=== PATIENT | male | born 1940 | race Caucasian/White ===

== ENCOUNTER 2022-09-05 10:37 | Outpatient (RCR) | payer BC, SELFPAY | END 2023-09-05 15:59 | disposition home or self-care (01) | LOC: MOW 10:37 | DX: Z76.0 Encounter for issue of repeat prescription (principal) | CPT/HCPCS: S5170 ==

== ENCOUNTER 2022-09-30 06:12 | Outpatient (CLI) | payer MEDICARE, BC, SELFPAY | END 2022-09-30 06:13 | disposition home or self-care (01) | LOC: AMB 10-01 12:18 | PROVIDERS: PCP Family Medicine; Visit Provider Family Medicine | DX: R06.09 Other forms of dyspnea (principal) | CPT/HCPCS: A0425; A0428; A0429 ==

== ENCOUNTER 2022-09-30 06:38 | Emergency (ER) | payer MEDICARE, BC, SELFPAY ==
[2022-09-30] VITALS (8 sets, daily range): BP systolic 133–148; BP diastolic 60–105; PULSE 62–75; RESP 16–32; TEMP 36.8; O2SAT 94–99
--- NOTE | 2022-09-30 06:50 | ED_ITS ---
HPI - General Adult General Time Seen by Provider: 06:50 <Demetris Stout MD - Last Filed: 09/30/22 23:51> Date Seen: 09/30/22 <Demetris Stout MD - Last Filed: 09/30/22 23:51> Chief complaint: Shortness of Breath/Dyspnea <Demetris Stout MD - Last Filed: 09/30/22 23:51> Stated complaint: short of breath <Demetris Stout MD - Last Filed: 09/30/22 23:51> Time Seen by Provider: 09/30/22 06:49 <Demetris Stout MD - Last Filed: 09/30/22 23:51> Source: patient, RN notes reviewed and old records reviewed <Demetris Stout MD - Last Filed: 09/30/22 23:51> Mode of arrival: EMS <Demetris Stout MD - Last Filed: 09/30/22 23:51> Limitations: no limitations <Demetris Stout MD - Last Filed: 09/30/22 23:51> History of Present Illness HPI narrative: 82-year-old male who presents today with shortness of breath. Patient is chronically on 4 L of oxygen for pulmonary fibrosis. Called EMS because of a low oxygen saturations. Per EMS report, oxygen concentrator was off and oxygen saturations in the 80s. Improved after being put on his usual 4 L of oxygen. Patient denies chest pain, fever, nausea, vomiting, leg swelling. Says he is feeling better now that he is back on oxygen. <Demetris Stout MD - Last Filed: 09/30/22 23:51> Related Data Home medications: Home Medications Medication Instructions Recorded Confirmed amlodipine 2.5 mg tablet PO 09/30/22 atorvastatin 20 mg tablet 20 mg PO DAILY 09/30/22 09/30/22 donepezil 10 mg tablet 10 mg PO DAILY 09/30/22 09/30/22 hydralazine 10 mg tablet 10 mg PO BID 09/30/22 09/30/22 hydrochlorothiazide 25 mg tablet 25 mg PO DAILY 09/30/22 09/30/22 memantine 10 mg tablet 10 mg PO BID 09/30/22 09/30/22 metoprolol tartrate 25 mg tablet 25 mg PO BID 09/30/22 09/30/22 Previous Rx's Medication Instructions Recorded doxycycline monohydrate 100 mg 100 mg PO BID #14 caps 09/30/22 capsule prednisone 20 mg tablet 20 mg PO BID #10 tabs 09/30/22 <Demetris Stout MD - Last Filed: 09/30/22 23:51> Allergies/adverse reactions: Allergies Allergy/AdvReac Type Severity Reaction Status Date / Time No Known Drug Allergies Allergy Verified 09/30/22 06:48 <Demetris Stout MD - Last Filed: 09/30/22 23:51> Review of Systems Status of ROS: Reports: 10 or more systems reviewed and unremarkable except as noted in History and below <Demetris Stout MD - Last Filed: 09/30/22 23:51> PFSH PFSH Social History: Social History Smoking Status: Never smoker Do you use any of these nicotine containing products: None How often do you have a drink containing alcohol: 2-3 times a week AUDIT-C Alcohol total score: 3 Non-prescribed substance use: denies use <Demetris Stout MD - Last Filed: 09/30/22 23:51> Exam Narrative: Exam Narrative: General: Well-developed and well-nourished, no acute distress Head: Atraumatic and normocephalic Eyes: Pupils are equal reactive, extraocular motions intact, conjunctiva clear ENT: External nose and ears are normal, posterior pharynx without erythema or exudate Neck: No midline cervical tenderness, full spontaneous range of motion the neck, trachea midline, no adenopathy Heart: Regular rate and rhythm no murmurs or thrills Lungs: Slight rub, no crackles or wheeze Abdomen: Soft, nontender, nondistended with active bowel sounds Musculoskeletal: No tenderness, deformity, or edema Neurologic: Awake, alert, and oriented x3, no gross focal neurologic deficits, cranial nerves intact as tested Psych: Mood and affect are appropriate Skin: No rashes <Demetris Stout MD - Last Filed: 09/30/22 23:51> Const: Vital Signs, click to edit/add: Vital Signs - 24 hr 09/30/22 06:41 09/30/22 07:30 09/30/22 08:00 Temperature 98.3 F Pulse Rate [Left P ulse Oximeter] 75 74 71 Respiratory Rate 16 28 H 28 H Blood Pressure [Ri ght Upper Arm] 136/75 139/81 133/105 H Pulse Oximetry 97 95 97 Oxygen Delivery Me thod Nasal Cannula Nasal Cannula Nasal Cannula Oxygen Flow Rate 4 09/30/22 08:30 09/30/22 09:00 09/30/22 09:30 Temperature Pulse Rate [Left P ulse Oximeter] 66 68 62 Respiratory Rate 32 H 30 H 28 H Blood Pressure [Ri ght Upper Arm] 145/65 H 137/60 136/74 Pulse Oximetry 95 95 99 Oxygen Delivery Me thod Nasal Cannula Nasal Cannula Nasal Cannula Oxygen Flow Rate 09/30/22 10:00 09/30/22 10:30 Temperature Pulse Rate [Left P ulse Oximeter] 74 70 Respiratory Rate 30 H 28 H Blood Pressure [Ri ght Upper Arm] 148/80 H 148/80 H Pulse Oximetry 94 95 Oxygen Delivery Me thod Nasal Cannula Nasal Cannula Oxygen Flow Rate <Demetris Stout MD - Last Filed: 09/30/22 23:51> Vital Signs, click to edit/add: Vital Signs - 24 hr 09/30/22 06:41 09/30/22 07:30 09/30/22 08:00 Temperature 98.3 F Pulse Rate [Left P ulse Oximeter] 75 74 71 Respiratory Rate 16 28 H 28 H Blood Pressure [Ri ght Upper Arm] 136/75 139/81 133/105 H Pulse Oximetry 97 95 97 Oxygen Delivery Me thod Nasal Cannula Nasal Cannula Nasal Cannula Oxygen Flow Rate 4 09/30/22 08:30 09/30/22 09:00 09/30/22 09:30 Temperature Pulse Rate [Left P ulse Oximeter] 66 68 62 Respiratory Rate 32 H 30 H 28 H Blood Pressure [Ri ght Upper Arm] 145/65 H 137/60 136/74 Pulse Oximetry 95 95 99 Oxygen Delivery Me thod Nasal Cannula Nasal Cannula Nasal Cannula Oxygen Flow Rate 09/30/22 10:00 09/30/22 10:30 Temperature Pulse Rate [Left P ulse Oximeter] 74 70 Respiratory Rate 30 H 28 H Blood Pressure [Ri ght Upper Arm] 148/80 H 148/80 H Pulse Oximetry 94 95 Oxygen Delivery Me thod Nasal Cannula Nasal Cannula Oxygen Flow Rate <Dolores Fields MD - Last Filed: 09/30/22 10:40> Course Course Hospital Course: Patient seen and examined, prior records reviewed. Patient chronically on oxygen, comes in today with shortness of breath, oxygen concentrator at home found not to be turned on. Patient has pulmonary fibrosis. Says he was feeling well yesterday now that he is back on oxygen is feeling better. Labs and chest x-ray ordered, these are reassuring patient can be discharged. <Demetris Stout MD - Last Filed: 09/30/22 23:51> Reevaluation(s) Time of Reevaluation #1: 07:55 <Demetris Stout MD - Last Filed: 09/30/22 23:51> Reevaluation #1: Labs independently interpreted by me with normal white blood cell count, normal hemoglobin. Basic panel is pending, venous gas with respiratory alkalosis. Chest x-ray to panel interpreted by me demonstrates some patchy infiltrates on the right more than left, some haziness in the left base. No prior for comparison. This may represent infiltrate or may be sequelae from his pulmonary fibrosis. CT scan is ordered to more closely evaluate this pending radiology interpretation. <Demetris Stout MD - Last Filed: 09/30/22 23:51> Time of Reevaluation #2: 08:14 <Demetris Stout MD - Last Filed: 09/30/22 23:51> Reevaluation #2: Labs independently interpreted by me Basic panel is reassuring, BNP is normal. Chest x-ray interpretation by radiology is interstitial opacities suggestive pulmonary edema, clinically this does not fit his presentation, CT scan should clarify if this is pulmonary edema versus is pulmonary fibrosis versus infiltrate or pneumonia. <Demetris Stout MD - Last Filed: 09/30/22 23:51> Time of Reevaluation #3: 10:30 <Dolores Fields MD - Last Filed: 09/30/22 10:40> Reevaluation #3: Did speak with Aislinn, his home health nurse pat called while I was in there and I spoke with her. They were supposed to be meeting today to increase his services to 3 times a week. She does have concerns with his respiratory reserve, difficulty just getting to the door which is maybe 100 ft to get his meals. She stated he is very resistant to go to a senior care which she believes he needs. I have reviewed this with Aislinn myself, that we just meeting him here today have concerns about his ability to function independently. I did also review with Pat that his oxygen concentrator was off last night. We are going to have social media developer meet with him. If he would consider senior care placement, would consider putting him in the hospital in tell he can be transferred to a senior care. At this point it does not sound like he is willing. Will follow-up with him after he is seeing social media developer, at this time likely discharge back to home with home health. Did review with Pat and the patient that the CT maybe had some mild changes that could suggest a pneumonia/pneumonitis. Will be covering with antibiotic and prednisone. <Dolores Fields MD - Last Filed: 09/30/22 10:40> Vital Signs Vital signs: Initial Vital Signs Temperature 98.3 F 09/30/22 06:41 Temperature Source Temporal Artery Scan 09/30/22 06:41 Pulse Rate 75 09/30/22 06:41 Pulse Rhythm Regular 09/30/22 06:41 Respiratory Rate 16 09/30/22 06:41 Blood Pressure 136/75 09/30/22 06:41 Blood Pressure Mean 95 09/30/22 06:41 Blood Pressure Position Semi-Fowlers 09/30/22 06:41 Pulse Oximetry 97 09/30/22 06:41 Oxygen Delivery Method Nasal Cannula 09/30/22 06:41 Oxygen Flow Rate 4 09/30/22 06:41 Vital Signs Temperature 98.3 F 09/30/22 06:41 Pulse Rate 75 09/30/22 06:41 Respiratory Rate 16 09/30/22 06:41 Blood Pressure 136/75 09/30/22 06:41 Pulse Oximetry 97 09/30/22 06:41 Oxygen Delivery Method Nasal Cannula 09/30/22 06:41 Oxygen Flow Rate 4 09/30/22 06:41 Temperature 98.3 F 09/30/22 06:41 Pulse Rate 70 09/30/22 10:30 Respiratory Rate 28 H 09/30/22 10:30 Blood Pressure 148/80 H 09/30/22 10:30 Pulse Oximetry 95 09/30/22 10:30 Oxygen Delivery Method Nasal Cannula 09/30/22 10:30 Oxygen Flow Rate 4 09/30/22 06:41 <Demetris Stout MD - Last Filed: 09/30/22 23:51> Initial Vital Signs Temperature 98.3 F 09/30/22 06:41 Temperature Source Temporal Artery Scan 09/30/22 06:41 Pulse Rate 75 09/30/22 06:41 Pulse Rhythm Regular 09/30/22 06:41 Respiratory Rate 16 09/30/22 06:41 Blood Pressure 136/75 09/30/22 06:41 Blood Pressure Mean 95 09/30/22 06:41 Blood Pressure Position Semi-Fowlers 09/30/22 06:41 Pulse Oximetry 97 09/30/22 06:41 Oxygen Delivery Method Nasal Cannula 09/30/22 06:41 Oxygen Flow Rate 4 09/30/22 06:41 Vital Signs Temperature 98.3 F 09/30/22 06:41 Pulse Rate 75 09/30/22 06:41 Respiratory Rate 16 09/30/22 06:41 Blood Pressure 136/75 09/30/22 06:41 Pulse Oximetry 97 09/30/22 06:41 Oxygen Delivery Method Nasal Cannula 09/30/22 06:41 Oxygen Flow Rate 4 09/30/22 06:41 Temperature 98.3 F 09/30/22 06:41 Pulse Rate 70 09/30/22 10:30 Respiratory Rate 28 H 09/30/22 10:30 Blood Pressure 148/80 H 09/30/22 10:30 Pulse Oximetry 95 09/30/22 10:30 Oxygen Delivery Method Nasal Cannula 09/30/22 10:30 Oxygen Flow Rate 4 09/30/22 06:41 <Dolores Fields MD - Last Filed: 09/30/22 10:40> Medical Decision Making Medical Records Medical records reviewed: Yes I reviewed the patient's medical records <Demetris Stout MD - Last Filed: 09/30/22 23:51> Lab Data Lab results reviewed: Yes I reviewed the patient's lab results <Demetris Stout MD - Last Filed: 09/30/22 23:51> Labs: Lab Results 09/30/22 Range/Units 07:20 WBC 10.94 (4.50-11.00) K/uL RBC 4.92 (4.30-5.90) m/uL Hgb 14.7 (13.5-17.5) gm/dL Hct 44.1 (37.0-53.0) % MCV 90 (80-100) fL MCH 30 (26-34) pg MCHC 33 (32-36) gm/dL RDW Coeff of Paddy 13.1 (11.5-15.5) % Plt Count 334 (140-440) K/uL Neut % (Auto) 76.3 H (42.0-72.0) % Lymph % (Auto) 15.5 L (20-44) % [place] % (Auto) 6.8 (0.0-11.0) % Eos % (Auto) 0.8 (0.0-7.0) % Baso % (Auto) 0.5 (0.0-3.0) % Neut # (Auto) 8.30 H (1.7-7.0) K/uL Lymph # (Auto) 1.70 (0.90-2.90) K/uL [place] # (Auto) 0.70 (0.00-0.90) K/UL Eos # (Auto) 0.09 (0.00-0.50) K/uL Baso # (Auto) 0.06 (0.00-0.30) K/uL VBG pH 7.431 H (7.32-7.43) VBG pCO2 38 L (40-50) mmHG VBG pO2 42.8 (25-47) mmHG VBG HCO3 25 (21-28) mmol/L Sodium 135 (135-149) mmol/L Potassium 3.8 (3.6-5.1) mmol/L Chloride 103 (96-114) mmol/L Carbon Dioxide 23 (20-32) mmol/L BUN 20 (7-30) mg/dL Creatinine 1.1 (0.5-1.5) mg/dL Estimated GFR 68 ml/min Glucose 115 (60-115) mg/dL Calcium 9.6 (8.4-10.6) mg/dL Magnesium 1.8 (1.5-2.6) mg/dL NT-Pro-B Natriuret Pep 208 pg/mL <Demetris Stout MD - Last Filed: 09/30/22 23:51> Lab Results 09/30/22 Range/Units 07:20 WBC 10.94 (4.50-11.00) K/uL RBC 4.92 (4.30-5.90) m/uL Hgb 14.7 (13.5-17.5) gm/dL Hct 44.1 (37.0-53.0) % MCV 90 (80-100) fL MCH 30 (26-34) pg MCHC 33 (32-36) gm/dL RDW Coeff of Paddy 13.1 (11.5-15.5) % Plt Count 334 (140-440) K/uL Neut % (Auto) 76.3 H (42.0-72.0) % Lymph % (Auto) 15.5 L (20-44) % [place] % (Auto) 6.8 (0.0-11.0) % Eos % (Auto) 0.8 (0.0-7.0) % Baso % (Auto) 0.5 (0.0-3.0) % Neut # (Auto) 8.30 H (1.7-7.0) K/uL Lymph # (Auto) 1.70 (0.90-2.90) K/uL [place] # (Auto) 0.70 (0.00-0.90) K/UL Eos # (Auto) 0.09 (0.00-0.50) K/uL Baso # (Auto) 0.06 (0.00-0.30) K/uL VBG pH 7.431 H (7.32-7.43) VBG pCO2 38 L (40-50) mmHG VBG pO2 42.8 (25-47) mmHG VBG HCO3 25 (21-28) mmol/L Sodium 135 (135-149) mmol/L Potassium 3.8 (3.6-5.1) mmol/L Chloride 103 (96-114) mmol/L Carbon Dioxide 23 (20-32) mmol/L BUN 20 (7-30) mg/dL Creatinine 1.1 (0.5-1.5) mg/dL Estimated GFR 68 ml/min Glucose 115 (60-115) mg/dL Calcium 9.6 (8.4-10.6) mg/dL Magnesium 1.8 (1.5-2.6) mg/dL NT-Pro-B Natriuret Pep 208 pg/mL <Dolores Fields MD - Last Filed: 09/30/22 10:40> Imaging Data CT scan - chest: Attestation: I have reviewed the pertinent imaging results. <Dolores Salinas MD - Last Filed: 09/30/22 10:40> Radiologist's impression: Patient: AISLINN CARLISLE III Facility:?[facility] Patient ID:?[id number] Site Patient ID:?[id number]. Site :?[id number] Study:?CT Chest Without-09/30/2022 8:34:24 AM Ordering Physician:?Girish Willson Final Report: Indication: Dyspnea, pulmonary fibrosis Technique: Volumetric multidetector CT images of the chest were obtained without the administration of IV contrast. Comparison: None available. Findings: The thoracic inlet and thyroid gland are unremarkable. The thoracic aorta is non aneurysmal with scattered atherosclerotic calcification. There are reactive appearing mediastinal and hilar lymph nodes. There is extensive traction bronchiectasis seen predominantly within the peripheral lower greater than upper lobes. There is moderate to severe pulmonary fibrotic change of the peripheral lower lobes and lingula as well as the peripheral upper lobes with moderate honeycombing. There is mild superimposed ground-glass opacity which may represent minimal pneumonitis and/or pulmonary edema. There is demonstration of minimal peripheral pulmonary nodules in the right upper lobe seen on series 4, image 59 measuring 7 millimeters The partially visualized upper abdomen demonstrates cystic changes of the kidneys. There are markedly dilated fluid-filled esophagus with a small hiatal hernia. The thoracic vertebral body heights are grossly maintained with moderate multilevel degenerative disc disease and diffuse flowing anterior osteophytes. There is no significant spondylolisthesis or displaced fracture. Impression: Extensive pulmonary fibrotic changes predominantly of the lower lobes, lingula and inferior upper lobes with mild superimposed ground-glass which may represent pneumonitis and/or pulmonary edema changes. No definite dense consolidation. Please note that all CT scans at this facility use dose modulation, iterative reconstruction, and/or weight-based dosing when appropriate to reduce radiation dose to as low as reasonably achievable. Dictated by Jerry Garrison MD @ 09/30/2022 9:04:45 AM (Electronic Signature) <Dolores Fields MD - Last Filed: 09/30/22 10:40> Discharge Plan Discharge Clinical Impression: Pulmonary fibrosis, Chronic respiratory failure with hypoxia, on home O2 therapy <Demetris Stout MD - Last Filed: 09/30/22 23:51> Patient Disposition: Home, Self-Care <Demetris Stout MD - Last Filed: 09/30/22 23:51> Condition: Stable <Demetris Stout MD - Last Filed: 09/30/22 23:51> Instructions: Pulmonary Fibrosis (ED), Using Oxygen at Home (ED) <Demetris Stout MD - Last Filed: 09/30/22 23:51> Additional Instructions: Start antibiotic and prednisone, take as prescribed. Please follow-up with her primary care provider for recheck within 1 week. If worsening, develops fevers, increased difficulty breathing, return for further evaluation. <Demetris Stout MD - Last Filed: 09/30/22 23:51> Activity Level: Activity as Tolerated <Demetris Stout MD - Last Filed: 09/30/22 23:51> Activity as Tolerated <Dolores Fields MD - Last Filed: 09/30/22 10:40> Discharge Diet: Regular <Demetris Stout MD - Last Filed: 09/30/22 23:51> Regular <Dolores Fields MD - Last Filed: 09/30/22 10:40> Prescriptions: New doxycycline monohydrate 100 mg capsule 100 mg PO BID Qty: 14 0RF prednisone 20 mg tablet 20 mg PO BID Qty: 10 0RF No Action hydralazine 10 mg tablet 10 mg PO BID atorvastatin 20 mg tablet 20 mg PO DAILY donepezil 10 mg tablet 10 mg PO DAILY amlodipine 2.5 mg tablet PO hydrochlorothiazide 25 mg tablet 25 mg PO DAILY memantine 10 mg tablet 10 mg PO BID metoprolol tartrate 25 mg tablet 25 mg PO BID <Demetris Stout MD - Last Filed: 09/30/22 23:51> Follow Up/Referrals: Provider,Not a Local [Referring] - <Demetris Stout MD - Last Filed: 09/30/22 23:51> Stand Alone Forms: MyHealth Info Instructions <Demetris Stout MD - Last Filed: 09/30/22 23:51>
--- NOTE | 2022-09-30 07:07 | CRLHL7_ITS ---
For Patients: As a result of the Century Cures Act, medical imaging exams and procedure reports are released immediately into your electronic medical record. You may view this report before your referring provider. If you have questions, please contact your health care provider. INDICATION: Dyspnea. TECHNIQUE: Chest 2 views. COMPARISON: None. FINDINGS: Cardiovascular and mediastinum: The cardiac silhouette is normal in size. There are diffuse interstitial opacities in a pattern suggestive of pulmonary edema. Lungs and pleural spaces: Patchy left retrocardiac opacity which may reflect alveolar edema or infection. No pleural effusion or pneumothorax. Bones and soft tissues: Advanced bilateral glenohumeral arthrosis. Degenerate spondylosis. IMPRESSION: Diffuse interstitial prominence in a pattern suggestive of pulmonary interstitial edema. Additional hazy left retrocardiac opacity may reflect areolar edema or infection. Dictated by Jonel Do MD @ 09/30/2022 8:04:27 AM (Electronically Signed)
[2022-09-30 07:32] LABS: Basophils Absolute Auto 0.06 K/uL (0.00-0.30); Basophils Percent Auto 0.5 % (0.0-3.0); Eosinophils Absolute Auto 0.09 K/uL (0.00-0.50); Eosinophils Percent Auto 0.8 % (0.0-7.0); Hematocrit 44.1 % (37.0-53.0); Hemoglobin* 14.7 gm/dL (13.5-17.5); Immature Granulocytes Abs Auto 0.01 K/uL (0.00-0.30); Immature Granulocytes Pct Auto 0.1 %; Lymphocytes Percent Auto 15.5 % (20-44); Mean Corpuscular HGB Conc 33 gm/dL (32-36); Mean Corpuscular Hemoglobin 30 pg (26-34); Mean Corpuscular Volume 90 fL (80-100); Monocytes Percent Auto 6.8 % (0.0-11.0); Neutrophils Percent Auto 76.3 % (42.0-72.0); Platelet Count* 334 K/uL (140-440); RDW Coefficient of Variation % 13.1 % (11.5-15.5); Red Blood Count 4.92 m/uL (4.30-5.90); White Blood Count* 10.94 K/uL (4.50-11.00)
--- NOTE | 2022-09-30 07:35 | CRLHL7_ITS ---
For Patients: As a result of the Century Cures Act, medical imaging exams and procedure reports are released immediately into your electronic medical record. You may view this report before your referring provider. If you have questions, please contact your health care provider. Indication: Dyspnea, pulmonary fibrosis Technique: Volumetric multidetector CT images of the chest were obtained without the administration of IV contrast. Comparison: None available. Findings: The thoracic inlet and thyroid gland are unremarkable. The thoracic aorta is non aneurysmal with scattered atherosclerotic calcification. There are reactive appearing mediastinal and hilar lymph nodes. There is extensive traction bronchiectasis seen predominantly within the peripheral lower greater than upper lobes. There is moderate to severe pulmonary fibrotic change of the peripheral lower lobes and lingula as well as the peripheral upper lobes with moderate honeycombing. There is mild superimposed ground-glass opacity which may represent minimal pneumonitis and/or pulmonary edema. There is demonstration of minimal peripheral pulmonary nodules in the right upper lobe seen on series 4, image 59 measuring 7 millimeters The partially visualized upper abdomen demonstrates cystic changes of the kidneys. There are markedly dilated fluid-filled esophagus with a small hiatal hernia. The thoracic vertebral body heights are grossly maintained with moderate multilevel degenerative disc disease and diffuse flowing anterior osteophytes. There is no significant spondylolisthesis or displaced fracture. Impression: Extensive pulmonary fibrotic changes predominantly of the lower lobes, lingula and inferior upper lobes with mild superimposed ground-glass which may represent pneumonitis and/or pulmonary edema changes. No definite dense consolidation. Please note that all CT scans at this facility use dose modulation, iterative reconstruction, and/or weight-based dosing when appropriate to reduce radiation dose to as low as reasonably achievable. Dictated by Jerry Garrison MD @ 09/30/2022 9:04:45 AM (Electronically Signed)
[2022-09-30 07:36] LABS: HCO3 VBG 25 mmol/L (21-28); PCO2 VBG 38 mmHG (40-50); PO2 VBG 42.8 mmHG (25-47); pH VBG 7.431 (7.32-7.43)
[2022-09-30 07:37] LABS: Slide Review Reflex No
[2022-09-30 07:52] LABS: Chloride* 103 mmol/L (96-114); Potassium* 3.8 mmol/L (3.6-5.1); Sodium* 135 mmol/L (135-149)
[2022-09-30 07:55] LABS: Blood Urea Nitrogen* 20 mg/dL (7-30); Carbon Dioxide* 23 mmol/L (20-32); Creatinine* 1.1 mg/dL (0.5-1.5); Estimated Glomerular Filt Rate 68 ml/min; Glucose* 115 mg/dL (60-115)
[2022-09-30 07:56] LABS: Calcium* 9.6 mg/dL (8.4-10.6); Magnesium* 1.8 mg/dL (1.5-2.6)
[2022-09-30 08:08] LABS: NT Pro B Type NatriureticPept* 208 pg/mL
--- NOTE | 2022-09-30 09:26 | ED.NURSE ---
asked patient questions about how manages home services and did not have an answer for scriber. stated I do not know. Scriber is questioning safety of patient at home and called SS for evaluation.
--- NOTE | 2022-09-30 10:30 | ED.NURSE ---
patient does have home care set up and agreed patient does not have the reserve to make it to the front door without O2. Shamika Rn who is the home care nurse plan to increase services to 3 days a week. Patient is short of breath and drops quickly to lower 80's with activity.
--- NOTE | 2022-09-30 11:00 | ED.NURSE ---
Social service is here to help with evaluating patient.
--- NOTE | 2022-09-30 11:05 | PC.SOCIAL ---
Social work: Met with pt regarding discharge plan. Pt states he lives by himself at [facility] in [place]. Pt states he has a home care nurse, Shamika [phone], who visits him once a week. At pt's request, called home care nurse. Clarified that [facility] is providing a RN once a week and a home health aid once a week. Per Shamika, they are increasing his home health aid to three times a week for 2 hours per visit. Pt receives meals on wheels. Pat is concerned that this may not be enough care to keep him at home. Pat states staff has discussed option of halfway, but that pt has refused and is able to make that decision for himself. solid waste collection worker also offered to pt to look into halfway or assisted living options. Pt refuses and states he will only agree to discharge home. Pt states he has no concerns about returning home. Pt requested social service technician contact his home oxygen company [employer] [phone] , to request they switch out his home concentrator for a new one as his has not been working consistently. Called and informed [employer] [facility] [employer] that pt will be discharged today and will need this switched today. Called pt's sister Kathi [phone] who is his emergency contact and lives in [place]. Kathi states she has offered to help him get into a halfway near where she lives but that he refuses. Sister states that when he is unable to make his own decisions, she believes she is pt's POA for healthcare. She shared that she had been given a form for this when he was incarcerated and that she is not sure it is still valid. Sister plans to work with [facility] nurse to provide them a copy of the form she has and to determine if pt needs to fill out another form to make her his POA if needed. Called [facility] nurse, Shamika, who is aware pt is being discharged today. Shamika states she can pick pt's medications up at [facility] tomorrow prior to her visit at 11:00. Called [employer] [facility] [employer] Yudelka addison who will come out and switch out his come concentrator today.
[2022-09-30] MEDS: predniSONE 10 MG TABLET 40 MG PO (11:43)
[2022-09-30] MEDS: DOXYCYCLINE HYCLATE 100 MG CAPSULE PO (11:49)
--- NOTE | 2022-09-30 17:06 | PC.APCO ---
Adult protection concern: Vulnerable adult report made to [facility] #[id number] due to concerns of self neglect, as pt refused to be discharged to a higher level of care.
== END 2022-09-30 12:02 | disposition home or self-care (01) ==
PROVIDERS: Emergency Provider Family Medicine; PCP Family Medicine
DX: J84.10 Pulmonary fibrosis, unspecified (principal); J96.01 Acute respiratory failure with hypoxia; Z99.81 Dependence on supplemental oxygen
CPT/HCPCS: 36415; 71046; 71250; 80048; 82803; 83735; 83880; 85025; 99285; A9270; J7512

== ENCOUNTER 2022-09-30 11:51 | Outpatient (CLI) | payer MEDICARE, BC, SELFPAY | END 2022-09-30 11:52 | disposition home or self-care (01) | LOC: AMB 10-02 09:26 | PROVIDERS: PCP Family Medicine; Visit Provider Family Medicine | DX: Z99.3 Dependence on wheelchair (principal) | CPT/HCPCS: A0428 ==

== ENCOUNTER 2022-12-10 11:24 | Outpatient (CLI) | payer MEDICARE, BC, SELFPAY | END 2022-12-10 11:25 | disposition home or self-care (01) | LOC: AMB 12-11 10:39 | PROVIDERS: PCP Family Medicine; Visit Provider Family Medicine | DX: R06.09 Other forms of dyspnea (principal) | CPT/HCPCS: A0425; A0427 ==

== ENCOUNTER 2022-12-10 11:42 | Inpatient (IN) | payer MEDICARE, BC, SELFPAY ==
[2022-12-10] VITALS (45 sets, daily range): BP systolic 107–145; BP diastolic 36–81; PULSE 56–95; RESP 10–31; TEMP 36.6; O2SAT 84–99; BMI 25.7
--- NOTE | 2022-12-10 11:59 | ED_ITS ---
HPI - SOB/Dyspnea General Time Seen by Provider: 12:00 <Dolores Fields MD - Last Filed: 12/12/22 14:06> Date Seen: 12/10/22 <Dolores Fields MD - Last Filed: 12/12/22 14:06> Chief Complaint: Shortness of Breath/Dyspnea <Dolores Fields MD - Last Filed: 12/12/22 14:06> Stated Complaint: difficulty breathing <Dolores Fields MD - Last Filed: 12/12/22 14:06> Time Seen by Provider: 12/10/22 11:58 <Dolores Fields MD - Last Filed: 12/12/22 14:06> Source: patient and RN notes reviewed <Dolores Fields MD - Last Filed: 12/12/22 14:06> Limitations: no limitations <Dolores Fields MD - Last Filed: 12/12/22 14:06> History of Present Illness HPI Narrative: This 82-year-old gentleman was brought in by EMS from home with increased difficulty breathing. He admits he has been having increased problems with dyspnea on exertion maybe even back to last week. He denies any cough, but no ill symptoms or respiratory symptoms outside the shortness of breath with exertion. He notes he can barely go 10 ft now without stopping. He has known pulmonary fibrosis in does wear 4 L nasal cannula oxygen all the time. He is adamant his equipment is working. There was an issue last time when he called EMS, there was a power outage or some issue and his nebulizer oxygen was not functioning. EMS noted ambulating to the cot that he went down into the 80s despite his oxygen being on. He is adamant that he has been wearing his oxygen 24-7 and is working. No fevers, no chest pain, no sense of palpitations or irregular heartbeat. Denies any edema. No abdominal symptoms with this. <Dolores Fields MD - Last Filed: 12/12/22 14:06> Related Data Home Medications: Home Medications Medication Instructions Recorded Confirmed amlodipine 2.5 mg tablet 7.5 mg PO DAILY 09/30/22 12/10/22 atorvastatin 20 mg tablet 20 mg PO DAILY 09/30/22 12/10/22 donepezil 10 mg tablet 10 mg PO DAILY 09/30/22 12/10/22 hydralazine 10 mg tablet 10 mg PO BID 09/30/22 12/10/22 hydrochlorothiazide 25 mg tablet 25 mg PO DAILY 09/30/22 12/10/22 memantine 10 mg tablet 10 mg PO BID 09/30/22 12/10/22 metoprolol tartrate 25 mg tablet 25 mg PO BID 09/30/22 12/10/22 aspirin 325 mg tablet 325 mg PO DAILY 12/10/22 12/10/22 <Dolores Fields MD - Last Filed: 12/12/22 14:06> Allergies/Adverse Reactions: Allergies Allergy/AdvReac Type Severity Reaction Status Date / Time No Known Drug Allergies Allergy Verified 12/10/22 14:16 <Dolores Fields MD - Last Filed: 12/12/22 14:06> Review of Systems Status of ROS: Reports: 6 or more systems reviewed and unremarkable except as noted in History and below <Dolores Fields MD - Last Filed: 12/12/22 14:06> [facility] Medical History: Medical History (Updated 12/12/22 @ 12:01 by Michele Murphy MD) Constipation ?K59.00 - Constipation, unspecified (ICD-10) Failure to thrive in adult ?R62.7 - Adult failure to thrive (ICD-10) Acute and chronic respiratory failure with hypoxia ?J96.21 - Acute and chronic respiratory failure with hypoxia (ICD-10) Does not feel safe at home (~08/03/21) ?Z91.89 - Other specified personal risk factors, not elsewhere classified (ICD-10) History of drug dependence (~08/03/21) ?F19.21 - Other psychoactive substance dependence, in remission (ICD-10) Lewy body dementia without behavioral disturbance (~08/03/21) ?G31.83 - Neurocognitive disorder with Lewy bodies (ICD-10) ?F02.80 - Dementia in other diseases classified elsewhere, unspecified severity, without behavioral disturbance, psychotic disturbance, mood disturbance, and anxiety (ICD-10) Mild cognitive impairment with memory loss ?G31.84 - Mild cognitive impairment of uncertain or unknown etiology (ICD-10) Hyperlipidemia (~04/22/19) ?E78.5 - Hyperlipidemia, unspecified (ICD-10) Hypertension (~04/22/19) ?I10 - Essential (primary) hypertension (ICD-10) GERD (gastroesophageal reflux disease) (~04/22/19) ?K21.9 - Gastro-esophageal reflux disease without esophagitis (ICD-10) Hiatal hernia (~04/22/19) ?K44.9 - Diaphragmatic hernia without obstruction or gangrene (ICD-10) Squamous cell skin cancer (~08/13/10) ?C44.92 - Squamous cell carcinoma of skin, unspecified (ICD-10) Pulmonary fibrosis (~08/17/20) ?J84.10 - Pulmonary fibrosis, unspecified (ICD-10) <Dolores Fields MD - Last Filed: 12/12/22 14:06> Surgical History: Surgical History (Updated 12/10/22 @ 20:39 by Emely Edge MD) H/O squamous cell carcinoma excision (~08/13/10) ?Z98.890 - Other specified postprocedural states (ICD-10) ?Z85.9 - Personal history of malignant neoplasm, unspecified (ICD-10) History of repair of hiatal hernia (~2019) ?Z98.890 - Other specified postprocedural states (ICD-10) ?Z87.19 - Personal history of other diseases of the digestive system (ICD-10) <Dolores Fields MD - Last Filed: 12/12/22 14:06> Family History: Family History (Updated 12/10/22 @ 20:40 by Emely Edge MD) Mother Diabetes Stroke, Onset Age: 65 Father Myocardial infarction <Dolores Fields MD - Last Filed: 12/12/22 14:06> Social History: Social History (Updated 12/10/22 @ 23:07 by Emely Edge MD) Narrative: Retired landlord. Smoked an average of 1.5 packs of cigarettes per day for 51 years, quit in 2004, never used smokeless tobacco. No alcohol use, quit on 01/02/2016. Buys narcotics illegally. Denies other recreational drug use. What is your current living situation?: I presently have a place to live Problems where you live: no known problems Problems where you live details: none In the past 12 months, utilities in danger of being shut off: no In the past 12 mos, have been you worried that your food would run out before you had money to buy more?: sometimes true In the past 12 mos, the food you bought just didn't last and you didn't have money to buy more?: never true Highest level of school completed/degree received: some college, no degree Smoking Status: Unknown if ever smoked Do you use any of these nicotine containing products: None How often do you have a drink containing alcohol: 2-3 times a week AUDIT-C Alcohol total score: 3 Non-prescribed substance use: denies use Non-prescribed substance use details: Get oxicontin on the [employer] Caffeine: Yes (coffee and pop) How often does anyone, including family, friends and others, physically hurt you : never How often does anyone, including family, friends and others, insult or talk down to you: never How often does anyone, including family, friends and others, threaten you with harm: never How often does anyone, including family, friends and others, scream or curse at you: never service: Yes <Dolores Fields MD - Last Filed: 12/12/22 14:06> Exam Const: Vital Signs, click to edit/add: Vital Signs - 24 hr 12/10/22 11:52 12/10/22 12:08 12/10/22 13:39 Temperature 97.8 F Pulse Rate 62 Pulse Rate [Pulse Oximeter] 68 Respiratory Rate 18 Blood Pressure 145/73 H Blood Pressure [Le ft Upper Arm] 141/81 H Pulse Oximetry 96 95 98 Oxygen Delivery Me thod Nasal Cannula Oxygen Flow Rate 4 12/10/22 13:40 12/10/22 13:50 12/10/22 14:00 Temperature Pulse Rate 66 66 60 Pulse Rate [Pulse Oximeter] Respiratory Rate Blood Pressure Blood Pressure [Le ft Upper Arm] Pulse Oximetry 98 91 98 Oxygen Delivery Me thod Oxygen Flow Rate 12/10/22 14:43 12/10/22 14:44 09/05/23 14:45 Temperature Pulse Rate 65 65 59 L Pulse Rate [Pulse Oximeter] Respiratory Rate Blood Pressure 144/69 H Blood Pressure [Le ft Upper Arm] Pulse Oximetry 88 91 92 Oxygen Delivery Me thod Oxygen Flow Rate 12/10/22 14:50 12/10/22 15:00 12/10/22 15:10 Temperature Pulse Rate 61 62 67 Pulse Rate [Pulse Oximeter] Respiratory Rate Blood Pressure Blood Pressure [Le ft Upper Arm] Pulse Oximetry 97 98 98 Oxygen Delivery Me thod Oxygen Flow Rate 12/10/22 15:20 Temperature Pulse Rate 74 Pulse Rate [Pulse Oximeter] Respiratory Rate Blood Pressure Blood Pressure [Le ft Upper Arm] Pulse Oximetry 97 Oxygen Delivery Me thod Oxygen Flow Rate Pleasant 82-year-old gentleman with 4 L nasal cannula oxygen on, not hypoxic at this time. He is alert interactive, slender frame. Sclera clear conjugate gaze, symmetrical facial function. Or mucosa look somewhat dry, dentition moderate repair. Neck is slender, no thyromegaly masses or nodules or cervical adenopathy. He is able to sit up, he has loud fibrotic sounds at both lung bases that diminish as you go up. I do not hear any wheezing. CV regular rate and rhythm, cannot hear any murmur, normal S1 and S2. Abdomen is soft, no rebound or guarding, no organomegaly, no tenderness or masses. No lower extremity edema. <Dolores Fields MD - Last Filed: 12/12/22 14:06> Vital Signs, click to edit/add: Vital Signs - 24 hr 12/10/22 11:52 12/10/22 12:08 12/10/22 13:39 Temperature 97.8 F Pulse Rate 62 Pulse Rate [Pulse Oximeter] 68 Respiratory Rate 18 Blood Pressure 145/73 H Blood Pressure [Le ft Upper Arm] 141/81 H Pulse Oximetry 96 95 98 Oxygen Delivery Me thod Nasal Cannula Oxygen Flow Rate 4 12/10/22 13:40 12/10/22 13:50 12/10/22 14:00 Temperature Pulse Rate 66 66 60 Pulse Rate [Pulse Oximeter] Respiratory Rate Blood Pressure Blood Pressure [Le ft Upper Arm] Pulse Oximetry 98 91 98 Oxygen Delivery Me thod Oxygen Flow Rate 12/10/22 14:43 12/10/22 14:44 12/10/22 14:45 Temperature Pulse Rate 65 65 59 L Pulse Rate [Pulse Oximeter] Respiratory Rate Blood Pressure 144/69 H Blood Pressure [Le ft Upper Arm] Pulse Oximetry 88 91 92 Oxygen Delivery Me thod Oxygen Flow Rate 12/10/22 14:50 12/10/22 15:00 12/10/22 15:10 Temperature Pulse Rate 61 62 67 Pulse Rate [Pulse Oximeter] Respiratory Rate Blood Pressure Blood Pressure [Le ft Upper Arm] Pulse Oximetry 97 98 98 Oxygen Delivery Me thod Oxygen Flow Rate 12/10/22 15:20 Temperature Pulse Rate 74 Pulse Rate [Pulse Oximeter] Respiratory Rate Blood Pressure Blood Pressure [Le ft Upper Arm] Pulse Oximetry 97 Oxygen Delivery Me thod Oxygen Flow Rate <Darwin Drew MD - Last Filed: 12/10/22 18:47> Documenting provider has reviewed patient's vital signs: yes <Dolores Fields MD - Last Filed: 12/12/22 14:06> Course Course Hospital Course: Have reviewed with patient that we will start with a chest x-ray, labs. Will look at cardiac possibilities for this. This could be progressive pulmonary fibrosis, underlying infectious, need to consider thromboembolic disease. He is currently stable on his 4 L at rest, sounds if he has to compensating at home with activity. <Dolores Fields MD - Last Filed: 12/12/22 14:06> Reevaluation(s) Time of Reevaluation #1: 13:59 <Dolores Fields MD - Last Filed: 12/12/22 14:06> Reevaluation #1: Have reviewed with patient that we really may need the IV to do chest CT PE protocol. His D-dimer is elevated, have reviewed with him we need this to further look at his lungs to rule out blood clots as well as possible infection. I am still awaiting the chest x-ray reading. His white blood count is mildly elevated. He really does not want an IV but he does understand I absolutely need to have this. <Dolores Fields MD - Last Filed: 12/12/22 14:06> Reevaluation #2: I assumed care of this patient from Dr. Paniagua. He is comfortable at rest on 4 L. He tells me he is too weak to walk more than couple feet and is unable to care for himself at home. His CT shows signs of end-stage pulmonary fibrosis but the radiologist does comment on some areas of ground-glass infiltrate possibly consistent with pneumonitis. It was recommended to the patient that he be discharged to the correction when he left in September but he refused. He now believes that he will need long-term care. His son is present and confirms that he cannot get to his bathroom because of his shortness of breath. He has not been in to see his PCP Dr. Deluna because it is too difficult to transport him. Dr. Edge kindly agrees to assume care of the patient and he has been made aware that this admission could potentially be observation only and if so correction coverage is not guaranteed. <Darwin Drew MD - Last Filed: 12/10/22 18:47> Vital Signs Vital signs: Initial Vital Signs Temperature 97.8 F 12/10/22 11:52 Temperature Source Temporal Artery Scan 12/10/22 11:52 Pulse Rate 68 12/10/22 11:52 Respiratory Rate 18 12/10/22 11:52 Blood Pressure 141/81 H 12/10/22 11:52 Blood Pressure Mean 101 12/10/22 11:52 Blood Pressure Position Supine 12/10/22 11:52 Pulse Oximetry 96 12/10/22 11:52 Oxygen Delivery Method Nasal Cannula 12/10/22 11:52 Oxygen Flow Rate 4 12/10/22 11:52 Vital Signs Temperature 97.8 F 12/10/22 11:52 Pulse Rate 68 12/10/22 11:52 Respiratory Rate 18 12/10/22 11:52 Blood Pressure 141/81 H 12/10/22 11:52 Pulse Oximetry 96 12/10/22 11:52 Oxygen Delivery Method Nasal Cannula 12/10/22 11:52 Oxygen Flow Rate 4 12/10/22 11:52 Temperature 97.8 F 12/10/22 22:00 Pulse Rate 95 12/10/22 20:42 Respiratory Rate 22 12/12/22 08:00 Blood Pressure 107/70 12/10/22 22:00 Pulse Oximetry 92 12/12/22 08:00 Oxygen Delivery Method Nasal Cannula 12/12/22 08:00 Oxygen Flow Rate 3 12/12/22 08:00 <Dolores Fields MD - Last Filed: 12/12/22 14:06> Initial Vital Signs Temperature 97.8 F 12/10/22 11:52 Temperature Source Temporal Artery Scan 12/10/22 11:52 Pulse Rate 68 12/10/22 11:52 Respiratory Rate 18 12/10/22 11:52 Blood Pressure 141/81 H 12/10/22 11:52 Blood Pressure Mean 101 12/10/22 11:52 Blood Pressure Position Supine 12/10/22 11:52 Pulse Oximetry 96 12/10/22 11:52 Oxygen Delivery Method Nasal Cannula 12/10/22 11:52 Oxygen Flow Rate 4 12/10/22 11:52 Vital Signs Temperature 97.8 F 12/10/22 11:52 Pulse Rate 68 12/10/22 11:52 Respiratory Rate 18 12/10/22 11:52 Blood Pressure 141/81 H 12/10/22 11:52 Pulse Oximetry 96 12/10/22 11:52 Oxygen Delivery Method Nasal Cannula 12/10/22 11:52 Oxygen Flow Rate 4 12/10/22 11:52 Temperature 97.8 F 12/10/22 22:00 Pulse Rate 95 12/10/22 20:42 Respiratory Rate 22 12/12/22 08:00 Blood Pressure 107/70 12/10/22 22:00 Pulse Oximetry 92 12/12/22 08:00 Oxygen Delivery Method Nasal Cannula 12/12/22 08:00 Oxygen Flow Rate 3 12/12/22 08:00 <Darwin Drew MD - Last Filed: 12/10/22 18:47> MDM - SOB/Dyspnea Lab Data Attestation: I reviewed the patient's lab results. <Dolores Fields MD - Last Filed: 12/12/22 14:06> Labs: Lab Results 12/10/22 12/10/22 12/10/22 Range/Units 12:08 12:30 12:40 WBC 14.12 H (4.50-11.00) K/uL RBC 5.13 (4.30-5.90) m/uL Hgb 15.0 (13.5-17.5) gm/dL Hct 45.5 (37.0-53.0) % MCV 89 (80-100) fL MCH 29 (26-34) pg MCHC 33 (32-36) gm/dL RDW Coeff of Paddy 13.2 (11.5-15.5) % Plt Count 290 (140-440) K/uL Neut % (Auto) 84.0 H (42.0-72.0) % Lymph % (Auto) 8.6 L (20-44) % [place] % (Auto) 5.9 (0.0-11.0) % Eos % (Auto) 1.0 (0.0-7.0) % Baso % (Auto) 0.4 (0.0-3.0) % Neut # (Auto) 11.90 H (1.7-7.0) K/uL Lymph # (Auto) 1.20 (0.90-2.90) K/uL [place] # (Auto) 0.80 (0.00-0.90) K/UL Eos # (Auto) 0.10 (0.00-0.50) K/uL Baso # (Auto) 0.10 (0.00-0.30) K/uL Abs Immat Gran (auto) 0.00 (0.00-0.30) K/uL Imm/Tot Granulo (auto) 0.1 % D-Dimer Quant (PE/DVT) 1.48 H (0.00-0.50) ug/ml VBG pH 7.429 (7.32-7.43) VBG pCO2 43 (40-50) mmHG VBG pO2 34.5 (25-47) mmHG VBG HCO3 28 (21-28) mmol/L Sodium 138 (135-149) mmol/L Potassium 3.6 (3.6-5.1) mmol/L Chloride 101 (96-114) mmol/L Carbon Dioxide 28 (20-32) mmol/L Anion Gap 9 (7-15) mEq/L BUN 20 (7-30) mg/dL Creatinine 0.9 (0.5-1.5) mg/dL Estimated GFR 86 ml/min Glucose 128 H (60-115) mg/dL Lactate 1.5 (0.5-1.9) mmol/L Calcium 9.8 (8.4-10.6) mg/dL Total Bilirubin 0.9 (0.1-1.5) mg/dL AST 34 (12-35) U/L ALT 26 (4-50) U/L Alkaline Phosphatase 99 (40-150) U/L C-Reactive Protein 2.4 H (0.5-1.0) mg/dL NT-Pro-B Natriuret Pep 292 pg/mL Total Protein (6.0-8.3) g/dL Albumin (3.3-5.0) g/dL Urine Color (Yellow) Urine Appearance (Clear) Urine pH (5.0-8.5) Ur Specific [place] (1.000-1.030) Urine Protein (Negative) Urine Glucose (UA) (Negative) Urine Ketones (Negative) Urine Blood (Negative) Urine Nitrite (Negative) Urine Bilirubin (Negative) Urine Urobilinogen (0.2-1.0) Ur Leukocyte Esterase (Negative) Urine RBC (0-2) Urine WBC (0-5) Ur Squamous Epith Cells (None-Few) Urine Bacteria (None) SARS-CoV-2 (PCR) Negative SARS-CoV-2 (Negative) Influenza Type A (PCR) Negative PCR FLU A (Negative) Influenza Type B (PCR) Negative PCR FLU B (Negative) RSV (PCR) Negative PCR RSV (Negative) POC Troponin I 0.00 L (0.01-0.04) ng/ml 12/10/22 12/10/22 Range/Units 12:40 14:04 WBC (4.50-11.00) K/uL RBC (4.30-5.90) m/uL Hgb (13.5-17.5) gm/dL Hct (37.0-53.0) % MCV (80-100) fL MCH (26-34) pg MCHC (32-36) gm/dL RDW Coeff of Paddy (11.5-15.5) % Plt Count (140-440) K/uL Neut % (Auto) (42.0-72.0) % Lymph % (Auto) (20-44) % [place] % (Auto) (0.0-11.0) % Eos % (Auto) (0.0-7.0) % Baso % (Auto) (0.0-3.0) % Neut # (Auto) (1.7-7.0) K/uL Lymph # (Auto) (0.90-2.90) K/uL [place] # (Auto) (0.00-0.90) K/UL Eos # (Auto) (0.00-0.50) K/uL Baso # (Auto) (0.00-0.30) K/uL Abs Immat Gran (auto) (0.00-0.30) K/uL Imm/Tot Granulo (auto) % D-Dimer Quant (PE/DVT) (0.00-0.50) ug/ml VBG pH (7.32-7.43) VBG pCO2 (40-50) mmHG VBG pO2 (25-47) mmHG VBG HCO3 (21-28) mmol/L Sodium (135-149) mmol/L Potassium (3.6-5.1) mmol/L Chloride (96-114) mmol/L Carbon Dioxide (20-32) mmol/L Anion Gap (7-15) mEq/L BUN (7-30) mg/dL Creatinine (0.5-1.5) mg/dL Estimated GFR ml/min Glucose (60-115) mg/dL Lactate (0.5-1.9) mmol/L Calcium (8.4-10.6) mg/dL Total Bilirubin (0.1-1.5) mg/dL AST (12-35) U/L ALT (4-50) U/L Alkaline Phosphatase (40-150) U/L C-Reactive Protein (0.5-1.0) mg/dL NT-Pro-B Natriuret Pep Cancelled pg/mL Total Protein 8.2 (6.0-8.3) g/dL Albumin 4.3 (3.3-5.0) g/dL Urine Color Yellow (Yellow) Urine Appearance Clear (Clear) Urine pH 6.0 (5.0-8.5) Ur Specific [place] 1.025 (1.000-1.030) Urine Protein 1+ A (Negative) Urine Glucose (UA) Negative (Negative) Urine Ketones Trace A (Negative) Urine Blood Negative (Negative) Urine Nitrite Negative (Negative) Urine Bilirubin Negative (Negative) Urine Urobilinogen 0.2 (0.2-1.0) Ur Leukocyte Esterase Negative (Negative) Urine RBC 0-2 (0-2) Urine WBC 0-2 (0-5) Ur Squamous Epith Cells None (None-Few) Urine Bacteria None (None) SARS-CoV-2 (PCR) (Negative) Influenza Type A (PCR) (Negative) Influenza Type B (PCR) (Negative) RSV (PCR) (Negative) POC Troponin I (0.01-0.04) ng/ml <Dolores Fields MD - Last Filed: 12/12/22 14:06> Lab Results 12/10/22 12/10/22 12/10/22 Range/Units 12:08 12:30 12:40 WBC 14.12 H (4.50-11.00) K/uL RBC 5.13 (4.30-5.90) m/uL Hgb 15.0 (13.5-17.5) gm/dL Hct 45.5 (37.0-53.0) % MCV 89 (80-100) fL MCH 29 (26-34) pg MCHC 33 (32-36) gm/dL RDW Coeff of Paddy 13.2 (11.5-15.5) % Plt Count 290 (140-440) K/uL Neut % (Auto) 84.0 H (42.0-72.0) % Lymph % (Auto) 8.6 L (20-44) % [place] % (Auto) 5.9 (0.0-11.0) % Eos % (Auto) 1.0 (0.0-7.0) % Baso % (Auto) 0.4 (0.0-3.0) % Neut # (Auto) 11.90 H (1.7-7.0) K/uL Lymph # (Auto) 1.20 (0.90-2.90) K/uL [place] # (Auto) 0.80 (0.00-0.90) K/UL Eos # (Auto) 0.10 (0.00-0.50) K/uL Baso # (Auto) 0.10 (0.00-0.30) K/uL Abs Immat Gran (auto) 0.00 (0.00-0.30) K/uL Imm/Tot Granulo (auto) 0.1 % D-Dimer Quant (PE/DVT) 1.48 H (0.00-0.50) ug/ml VBG pH 7.429 (7.32-7.43) VBG pCO2 43 (40-50) mmHG VBG pO2 34.5 (25-47) mmHG VBG HCO3 28 (21-28) mmol/L Sodium 138 (135-149) mmol/L Potassium 3.6 (3.6-5.1) mmol/L Chloride 101 (96-114) mmol/L Carbon Dioxide 28 (20-32) mmol/L Anion Gap 9 (7-15) mEq/L BUN 20 (7-30) mg/dL Creatinine 0.9 (0.5-1.5) mg/dL Estimated GFR 86 ml/min Glucose 128 H (60-115) mg/dL Lactate 1.5 (0.5-1.9) mmol/L Calcium 9.8 (8.4-10.6) mg/dL Total Bilirubin 0.9 (0.1-1.5) mg/dL AST 34 (12-35) U/L ALT 26 (4-50) U/L Alkaline Phosphatase 99 (40-150) U/L C-Reactive Protein 2.4 H (0.5-1.0) mg/dL NT-Pro-B Natriuret Pep 292 pg/mL Total Protein (6.0-8.3) g/dL Albumin (3.3-5.0) g/dL Urine Color (Yellow) Urine Appearance (Clear) Urine pH (5.0-8.5) Ur Specific [place] (1.000-1.030) Urine Protein (Negative) Urine Glucose (UA) (Negative) Urine Ketones (Negative) Urine Blood (Negative) Urine Nitrite (Negative) Urine Bilirubin (Negative) Urine Urobilinogen (0.2-1.0) Ur Leukocyte Esterase (Negative) Urine RBC (0-2) Urine WBC (0-5) Ur Squamous Epith Cells (None-Few) Urine Bacteria (None) SARS-CoV-2 (PCR) Negative SARS-CoV-2 (Negative) Influenza Type A (PCR) Negative PCR FLU A (Negative) Influenza Type B (PCR) Negative PCR FLU B (Negative) RSV (PCR) Negative PCR RSV (Negative) POC Troponin I 0.00 L (0.01-0.04) ng/ml 12/10/22 12/10/22 Range/Units 12:40 14:04 WBC (4.50-11.00) K/uL RBC (4.30-5.90) m/uL Hgb (13.5-17.5) gm/dL Hct (37.0-53.0) % MCV (80-100) fL MCH (26-34) pg MCHC (32-36) gm/dL RDW Coeff of Paddy (11.5-15.5) % Plt Count (140-440) K/uL Neut % (Auto) (42.0-72.0) % Lymph % (Auto) (20-44) % [place] % (Auto) (0.0-11.0) % Eos % (Auto) (0.0-7.0) % Baso % (Auto) (0.0-3.0) % Neut # (Auto) (1.7-7.0) K/uL Lymph # (Auto) (0.90-2.90) K/uL [place] # (Auto) (0.00-0.90) K/UL Eos # (Auto) (0.00-0.50) K/uL Baso # (Auto) (0.00-0.30) K/uL Abs Immat Gran (auto) (0.00-0.30) K/uL Imm/Tot Granulo (auto) % D-Dimer Quant (PE/DVT) (0.00-0.50) ug/ml VBG pH (7.32-7.43) VBG pCO2 (40-50) mmHG VBG pO2 (25-47) mmHG VBG HCO3 (21-28) mmol/L Sodium (135-149) mmol/L Potassium (3.6-5.1) mmol/L Chloride (96-114) mmol/L Carbon Dioxide (20-32) mmol/L Anion Gap (7-15) mEq/L BUN (7-30) mg/dL Creatinine (0.5-1.5) mg/dL Estimated GFR ml/min Glucose (60-115) mg/dL Lactate (0.5-1.9) mmol/L Calcium (8.4-10.6) mg/dL Total Bilirubin (0.1-1.5) mg/dL AST (12-35) U/L ALT (4-50) U/L Alkaline Phosphatase (40-150) U/L C-Reactive Protein (0.5-1.0) mg/dL NT-Pro-B Natriuret Pep Cancelled pg/mL Total Protein 8.2 (6.0-8.3) g/dL Albumin 4.3 (3.3-5.0) g/dL Urine Color Yellow (Yellow) Urine Appearance Clear (Clear) Urine pH 6.0 (5.0-8.5) Ur Specific [place] 1.025 (1.000-1.030) Urine Protein 1+ A (Negative) Urine Glucose (UA) Negative (Negative) Urine Ketones Trace A (Negative) Urine Blood Negative (Negative) Urine Nitrite Negative (Negative) Urine Bilirubin Negative (Negative) Urine Urobilinogen 0.2 (0.2-1.0) Ur Leukocyte Esterase Negative (Negative) Urine RBC 0-2 (0-2) Urine WBC 0-2 (0-5) Ur Squamous Epith Cells None (None-Few) Urine Bacteria None (None) SARS-CoV-2 (PCR) (Negative) Influenza Type A (PCR) (Negative) Influenza Type B (PCR) (Negative) RSV (PCR) (Negative) POC Troponin I (0.01-0.04) ng/ml <Darwin Drew MD - Last Filed: 12/10/22 18:47> Imaging Data Chest x-ray: Attestation: I have reviewed the pertinent imaging results. <Dolores Salinas MD - Last Filed: 12/12/22 14:06> My impression: I see significant fibrotic changes, did compared to last chest x- ray. Difficult for me to ascertain if there is any acute change, await Radiology over-read. <Dolores Fields MD - Last Filed: 12/12/22 14:06> Radiologist's impression: Patient: AISLINN CARLISLE III Facility:?[facility] Patient ID:?[id number] Site Patient ID:?[id number]. Site :?[id number] Study:?XRay Chest 1 VIEW PORTABLE-12/10/2022 1:10:43 PM Ordering Physician:Antwan Bernal Final Report: INDICATION: Increasing hypoxia. Pulmonary fibrosis. TECHNIQUE: Chest 1 views. COMPARISON: September 30, 2022. FINDINGS: Cardiovasculature and mediastinum: Unremarkable heart size and mediastinum. Lungs and pleural spaces: Persistent interstitial markings consistent with pulmonary fibrosis. No focal infiltrate. No effusions and no pneumothorax. Bones and soft tissues: No significant findings. IMPRESSION: No acute findings and no significant changes from the prior exam. No specific finding to explain increasing hypoxia. Dictated by Jorge Stauffer MD @ 12/10/2022 2:27:14 PM (Electronic Signature) <Dolores Fields MD - Last Filed: 12/12/22 14:06> CT scan - chest: Attestation: I have reviewed the pertinent imaging results. <Dolores Salians MD - Last Filed: 12/12/22 14:06> Radiologist's impression: Patient: HARRISON CARLISLE Facility:?[facility] Patient ID:?[id number] Site [id number] ID:?[id number]. Site :?[id number] Study:?CT Chest Angio PE 95 CC'S ISOVUE 370-12/10/2022 4:23:18 PM Ordering Physician:Antwan Bernal Final Report: INDICATION: Worsening hypoxia. TECHNIQUE: CT chest PE was acquired with 95 cc Isovue 370 IV contrast. COMPARISON: September 30, 2022. FINDINGS: Heart and vasculature: Contrast opacification of the pulmonary arterial tree is adequate to the level of the distal segmental pulmonary arteries. No sign of pulmonary embolism to the level of the distal segmental pulmonary arteries. Cardiomegaly with coronary artery calcification. Mild enlargement of the pulmonary arteries. 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 Additional subtle ground-glass attenuation throughout the lungs. No dense consolidations. No pleural effusions, pleural thickening, or pneumothorax. Lymph nodes/mediastinum: Persistent mildly enlarged mediastinal and hilar lymph nodes. Chest wall: No masses. Upper abdomen: Moderate hiatal hernia. No acute or significant findings. Bones: Unremarkable for age. IMPRESSION: No pulmonary embolism to the level of the distal segmental pulmonary arteries. Nondiagnostic evaluation of the subsegmental branches secondary to motion artifact. 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 Some superimposed ground-glass which could suggest superimposed pneumonitis/pneumonia. No large dense consolidations. Cardiomegaly with coronary artery calcifications. Pulmonary hypertension. Please note that all CT scans at this facility use dose modulation, iterative reconstruction, and/or weight-based dosing when appropriate to reduce radiation dose to as low as reasonably achievable. Dictated by Jean Gonzalez MD @ 12/10/2022 5:48:46 PM (Electronic Signature) <Dolores Fields MD - Last Filed: 12/12/22 14:06> ECG Data Attestation: I personally reviewed and interpreted this ECG as follows: (Normal sinus rhythm, 60 beats per minute, no acute abnormality, QT corrected 456 milliseconds.) <Dolores Fields MD - Last Filed: 12/12/22 14:06> ECG interpretation date: 12/10/22 <Dolores Fields MD - Last Filed: 12/12/22 14:06> ECG interpretation time: 13:55 <Dolores Fields MD - Last Filed: 12/12/22 14:06> Discharge Plan Discharge Clinical Impression: Pneumonitis, Shortness of breath, Pulmonary fibrosis, Hypoxia <Dolores Fields MD - Last Filed: 12/12/22 14:06> Patient Disposition: Admitted As Inpatient <Dolores Fields MD - Last Filed: 12/12/22 14:06> Condition: Guarded <Dolores Fields MD - Last Filed: 12/12/22 14:06>
--- NOTE | 2022-12-10 12:07 | CRLHL7_ITS ---
For Patients: As a result of the Cures Act, medical imaging exams and procedure reports are released immediately into your electronic medical record. You may view this report before your referring provider. If you have questions, please contact your health care provider. INDICATION: Increasing hypoxia. Pulmonary fibrosis. TECHNIQUE: Chest 1 views. COMPARISON: September 30, 2022. FINDINGS: Cardiovasculature and mediastinum: Unremarkable heart size and mediastinum. Lungs and pleural spaces: Persistent interstitial markings consistent with pulmonary fibrosis. No focal infiltrate. No effusions and no pneumothorax. Bones and soft tissues: No significant findings. IMPRESSION: No acute findings and no significant changes from the prior exam. No specific finding to explain increasing hypoxia. Dictated by Jorge Stauffer MD @ 12/10/2022 2:27:14 PM (Electronically Signed)
--- NOTE | 2022-12-10 12:38 | ED.NURSE ---
Pt refusing IV x2, doctor notified. Lab coming for a blood draw instead of IV. Pt is aware.
[2022-12-10 12:47] LABS: HCO3 VBG 28 mmol/L (21-28); Lactate* 1.5 mmol/L (0.5-1.9); PCO2 VBG 43 mmHG (40-50); PO2 VBG 34.5 mmHG (25-47); pH VBG 7.429 (7.32-7.43)
[2022-12-10 12:49] LABS: Basophils Percent Auto 0.4 % (0.0-3.0); Hematocrit 45.5 % (37.0-53.0); Immature Granulocytes Pct Auto 0.1 %; Lymphocytes Percent Auto 8.6 % (20-44); Mean Corpuscular HGB Conc 33 gm/dL (32-36); Mean Corpuscular Hemoglobin 29 pg (26-34); Mean Corpuscular Volume 89 fL (80-100); Monocytes Percent Auto 5.9 % (0.0-11.0); Platelet Count* 290 K/uL (140-440); RDW Coefficient of Variation % 13.2 % (11.5-15.5); Red Blood Count 5.13 m/uL (4.30-5.90); White Blood Count* 14.12 K/uL (4.50-11.00)
[2022-12-10 12:51] LABS: Slide Review Reflex No
[2022-12-10 13:04] LABS: Albumin* 4.3 g/dL (3.3-5.0)
[2022-12-10 13:05] LABS: Chloride* 101 mmol/L (96-114); Potassium* 3.6 mmol/L (3.6-5.1); Sodium* 138 mmol/L (135-149)
[2022-12-10 13:07] LABS: Anion Gap 9 mEq/L (7-15); Bilirubin Total* 0.9 mg/dL (0.1-1.5); Carbon Dioxide* 28 mmol/L (20-32); Creatinine* 0.9 mg/dL (0.5-1.5); Estimated Glomerular Filt Rate 86 ml/min
[2022-12-10 13:08] LABS: Alanine Aminotransferase* 26 U/L (4-50); Alkaline Phosphatase* 99 U/L (40-150); Aspartate Amino Transferase* 34 U/L (12-35); Blood Urea Nitrogen* 20 mg/dL (7-30); Calcium* 9.8 mg/dL (8.4-10.6); Glucose* 128 mg/dL (60-115); Total Protein* 8.2 g/dL (6.0-8.3)
[2022-12-10 13:12] LABS: PCR FLU A Negative PCR FLU A (Negative); PCR FLU B Negative PCR FLU B (Negative); PCR RSV Negative PCR RSV (Negative)
[2022-12-10 13:15] LABS: D Dimer Quantitative* 1.48 ug/ml (0.00-0.50)
[2022-12-10 13:20] LABS: SARS PCR* Negative SARS-CoV-2 (Negative)
[2022-12-10 13:22] LABS: C Reactive Protein* 2.4 mg/dL (0.5-1.0)
[2022-12-10 13:23] LABS: NT Pro B Type NatriureticPept* 292 pg/mL
--- NOTE | 2022-12-10 14:15 | CRLHL7_ITS ---
For Patients: As a result of the Century Cures Act, medical imaging exams and procedure reports are released immediately into your electronic medical record. You may view this report before your referring provider. If you have questions, please contact your health care provider. INDICATION: Worsening hypoxia. TECHNIQUE: CT chest PE was acquired with 95 cc Isovue 370 IV contrast. COMPARISON: September 30, 2022. FINDINGS: Heart and vasculature: Contrast opacification of the pulmonary arterial tree is adequate to the level of the distal segmental pulmonary arteries. No sign of pulmonary embolism to the level of the distal segmental pulmonary arteries. Cardiomegaly with coronary artery calcification. Mild enlargement of the pulmonary arteries. 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 Additional subtle ground-glass attenuation throughout the lungs. No dense consolidations. No pleural effusions, pleural thickening, or pneumothorax. Lymph nodes/mediastinum: Persistent mildly enlarged mediastinal and hilar lymph nodes. Chest wall: No masses. Upper abdomen: Moderate hiatal hernia. No acute or significant findings. Bones: Unremarkable for age. IMPRESSION: No pulmonary embolism to the level of the distal segmental pulmonary arteries. Nondiagnostic evaluation of the subsegmental branches secondary to motion artifact. 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 Some superimposed ground-glass which could suggest superimposed pneumonitis/pneumonia. No large dense consolidations. Cardiomegaly with coronary artery calcifications. Pulmonary hypertension. Please note that all CT scans at this facility use dose modulation, iterative reconstruction, and/or weight-based dosing when appropriate to reduce radiation dose to as low as reasonably achievable. Dictated by Jean Gonzalez MD @ 12/10/2022 5:48:46 PM (Electronically Signed)
[2022-12-10 14:26] LABS: Appearance Urine Clear (Clear); Bilirubin Urine Negative (Negative); Blood Urine Negative (Negative); Color Urine Yellow (Yellow); Glucose Urine Negative (Negative); Ketones Urine Trace (Negative); Leukocyte Esterase Urine Negative (Negative); Nitrite Urine Negative (Negative); Protein Urine 1+ (Negative); Specific Gravity Urine 1.025 (1.000-1.030); Urobilinogen Urine 0.2 (0.2-1.0)
[2022-12-10 14:37] LABS: RBC Urine 0-2 (0-2); WBC Urine 0-2 (0-5)
--- NOTE | 2022-12-10 14:46 | ED.NURSE ---
Unable to place IV for PE study x3. Called house sup to call SET OFF PRESS OPERATOR for iV placement.
--- NOTE | 2022-12-10 18:18 | ED.NURSE ---
removed the oximask and placed at 4 liters of O2 via nc. pusle ox is 97% so noticed the patient's breathing increasing with this change and encouraged patient to slow breathing along with concentrating on deep breathing. decreased O2 to 3 liters and pulse ox 96%. wanted to patient to go for a walk to see how pulse ox reacts to activity and patient stated unable to walk no more than 5-6 steps. Informed ED MD of this
--- NOTE | 2022-12-10 19:54 | ED.NURSE ---
Patients sister Kathi updated about patient going to be admitted. Kathi #[phone]
--- NOTE | 2022-12-10 20:40 | ED.NURSE ---
Nurse to nurse report given to lars armstrong. Patient going 251
--- NOTE | 2022-12-10 22:38 | P.IMHP_ITS ---
Hospitalist- H&P: HPI History of Present Illness Time Seen by Provider: 21:00 Date Seen: 12/10/22 Chief complaint: difficulty breathing Narrative: Mo Villafana III is a 82 year old male with a history of severe pulmonary fibrosis presents with progressively worse dyspnea. He last saw his tracer lathe set up operator at [facility] about a year and half ago at which time they discussed end of life and the possible need for hospice at some point. Mo had been unable to tolerate fibro lytic medications due to the GI side effects. Since that visit with his tracer lathe set up operator he has become progressively more short of breath to the point where he gets short of breath just shifting around in bed or talking. Getting to the bathroom just 10 ft away or less causes him great anxiety because he will have to stop every 2 steps to catch his breath and it takes so long that he is no longer making it to the bathroom on time. He admits to me that his symptoms have been so bad that he has been self medicating by buying OxyContin from a friend. He cuts them into fourths and takes 1 every 5-6 hours. He is starting to run out of his apply and cannot get any more until Friday. He is not been doing well in his apartment because he can no longer get to the bathroom on time and can not make it to the door to get Meals on wheels. His home health provider has been concerned about his ability to be in his apartment for some time and it was recommended back in September when he came to the ER that he go to a snf, but he did not want to then. When I 1st walked in, he was talking to his sister, Kathi, on the phone and she was part of the conversation to begin with. After I spoke with and examined Mo, Mo gave me permission to call Kathi. I did so outside the room and Kathi told me about his long history of addiction and treatment and about how recently he has been so s ignificantly short of breath and homebound that she is grateful that we are considering hospice for him because he has been miserable. She thinks it will be a great comfort and knows that he has been dying for some time. She is also glad to hear that he is agreeable to go to a snf because she has also been concerned about his situation in his apartment and how he has been caring for himself. Review of Systems Status of ROS: Reports: 10 or more systems reviewed and unremarkable except as noted in History and below Const: Reports: change in weight (Weight loss) and fatigue; Denies: fever or chills ENMT: Denies: nasal discharge or nasal congestion Cardio: Reports: shortness of breath with exertion Resp: Reports: shortness of breath; Denies: cough, coughing up blood or chest congestion Integ/Breast: Denies: rash Endo: Reports: fatigue PFSH PFS Medical History (Updated 12/10/22 @ 23:16 by Emely Edge MD) Does not feel safe at home (~08/03/21) ?Z91.89 - Other specified personal risk factors, not elsewhere classified (IC D-10) History of drug dependence (~08/03/21) ?F19.21 - Other psychoactive substance dependence, in remission (ICD-10) Lewy body dementia without behavioral disturbance (~08/03/21) ?G31.83 - Neurocognitive disorder with Lewy bodies (ICD-10) ?F02.80 - Dementia in other diseases classified elsewhere, unspecified severity, without behavioral disturbance, psychotic disturbance, mood disturbance, and anxiety (ICD-10) Mild cognitive impairment with memory loss ?G31.84 - Mild cognitive impairment of uncertain or unknown etiology (ICD-10) Hyperlipidemia (~04/22/19) ?E78.5 - Hyperlipidemia, unspecified (ICD-10) Hypertension (~04/22/19) ?I10 - Essential (primary) hypertension (ICD-10) GERD (gastroesophageal reflux disease) (~04/22/19) ?K21.9 - Gastro-esophageal reflux disease without esophagitis (ICD-10) Hiatal hernia (~04/22/19) ?K44.9 - Diaphragmatic hernia without obstruction or gangrene (ICD-10) Squamous cell skin cancer (~08/13/10) ?C44.92 - Squamous cell carcinoma of skin, unspecified (ICD-10) Pulmonary fibrosis (~08/17/20) ?J84.10 - Pulmonary fibrosis, unspecified (ICD-10) Surgical History (Updated 12/10/22 @ 20:39 by Emely Edge MD) H/O squamous cell carcinoma excision (~08/13/10) ?Z98.890 - Other specified postprocedural states (ICD-10) ?Z85.9 - Personal history of malignant neoplasm, unspecified (ICD-10) History of repair of hiatal hernia (~2020) ?Z98.890 - Other specified postprocedural states (ICD-10) ?Z87.19 - Personal history of other diseases of the digestive system (ICD-10) Family History (Updated 12/10/22 @ 20:40 by Emely Edge MD) Mother Diabetes Stroke, Onset Age: 65 Father Myocardial infarction Social History (Updated 12/10/22 @ 23:07 by Emely Edge MD) Narrative: Retired landlord. Smoked an average of 1.5 packs of cigarettes per day for 51 years, quit in 2004, never used smokeless tobacco. No alcohol use, quit on 01/02/2016. Buys narcotics illegally. Denies other recreational drug use. Do you use any of these nicotine containing products: None How often do you have a drink containing alcohol: 2-3 times a week AUDIT-C Alcohol total score: 3 Non-prescribed substance use: denies use Meds Home Medications and Allergies Home Medications Medication Instructions Recorded Confirmed Type amlodipine 2.5 mg tablet 7.5 mg PO DAILY 09/30/22 12/10/22 History atorvastatin 20 mg tablet 20 mg PO DAILY 09/30/22 12/10/22 History donepezil 10 mg tablet 10 mg PO DAILY 09/30/22 12/10/22 History hydralazine 10 mg tablet 10 mg PO BID 09/30/22 12/10/22 History hydrochlorothiazide 25 mg tablet 25 mg PO DAILY 09/30/22 12/10/22 History memantine 10 mg tablet 10 mg PO BID 09/30/22 12/10/22 History metoprolol tartrate 25 mg tablet 25 mg PO BID 09/30/22 12/10/22 History aspirin 325 mg tablet 325 mg PO DAILY 12/10/22 12/10/22 History Allergies Allergy/AdvReac Type Severity Reaction Status Date / Time No Known Drug Allergies Allergy Verified 12/10/22 14:16 Exam Narrative: Exam Narrative: General: Dyspneic. Shaking. Awake alert oriented x3. HEENT: Normocephalic atraumatic, pupils equally round and reactive to light and accommodation. Oropharynx clear. Mucous membranes are moist. No cervical lymphadenopathy, thyromegaly or carotid bruits. No JVD. Cardiovascular: Regular rate and rhythm. No murmurs, gallops, or rubs. Chest: Dyspneic just lying in bed. Able to say 1 or 2 words at a time before taking a breath. Crackles throughout all lung [place], more prominent in the bases. Abdomen: Bowel sounds present. Soft, nondistended, nontender. No hepatosplenomegaly or masses. Extremities: No edema, no cyanosis or clubbing. Skin: No jaundice, no pallor, no rashes. Const: Vital Signs, click to edit/add: Vital Signs - 24 hr 12/10/22 11:52 12/10/22 12:08 12/10/22 13:39 Temperature 97.8 F Pulse Rate 62 Pulse Rate [Pulse Oximeter] 68 Respiratory Rate 18 Blood Pressure 145/73 H Blood Pressure [Le ft Upper Arm] 141/81 H Pulse Oximetry 96 95 98 Oxygen Delivery Me thod Nasal Cannula Oxygen Flow Rate 4 12/10/22 13:40 12/10/22 13:50 12/10/22 14:00 Temperature Pulse Rate 66 66 60 Pulse Rate [Pulse Oximeter] Respiratory Rate Blood Pressure Blood Pressure [Le ft Upper Arm] Pulse Oximetry 98 91 98 Oxygen Delivery Me thod Oxygen Flow Rate 12/10/22 14:43 12/10/22 14:44 12/10/22 14:45 Temperature Pulse Rate 65 65 59 L Pulse Rate [Pulse Oximeter] Respiratory Rate Blood Pressure 144/69 H Blood Pressure [Le ft Upper Arm] Pulse Oximetry 88 91 92 Oxygen Delivery Me thod Oxygen Flow Rate 12/10/22 14:50 12/10/22 15:00 12/10/22 15:10 Temperature Pulse Rate 61 62 67 Pulse Rate [Pulse Oximeter] Respiratory Rate Blood Pressure Blood Pressure [Le ft Upper Arm] Pulse Oximetry 97 98 98 Oxygen Delivery Me thod Oxygen Flow Rate 12/10/22 15:20 12/10/22 15:30 12/10/22 15:40 Temperature Pulse Rate 74 66 64 Pulse Rate [Pulse Oximeter] Respiratory Rate 28 H 15 Blood Pressure Blood Pressure [Le ft Upper Arm] Pulse Oximetry 97 99 96 Oxygen Delivery Me thod Oxygen Flow Rate 12/10/22 15:50 12/10/22 16:30 12/10/22 16:40 Temperature Pulse Rate 74 75 Pulse Rate [Pulse Oximeter] Respiratory Rate 17 Blood Pressure Blood Pressure [Le ft Upper Arm] Pulse Oximetry 96 97 Oxygen Delivery Me thod Oxygen Flow Rate 12/10/22 16:50 12/10/22 17:00 12/10/22 17:19 Temperature Pulse Rate 69 61 62 Pulse Rate [Pulse Oximeter] Respiratory Rate Blood Pressure Blood Pressure [Le ft Upper Arm] Pulse Oximetry 99 99 98 Oxygen Delivery Me thod Oxygen Flow Rate 12/10/22 17:20 12/10/22 17:30 12/10/22 17:40 Temperature Pulse Rate 61 56 L 70 Pulse Rate [Pulse Oximeter] Respiratory Rate 19 14 17 Blood Pressure Blood Pressure [Le ft Upper Arm] Pulse Oximetry 98 97 97 Oxygen Delivery Me thod Oxygen Flow Rate 12/10/22 17:50 12/10/22 18:00 12/10/22 18:10 Temperature Pulse Rate Pulse Rate [Pulse Oximeter] Respiratory Rate 28 H 15 12 Blood Pressure Blood Pressure [Le ft Upper Arm] Pulse Oximetry Oxygen Delivery Me thod Oxygen Flow Rate 12/10/22 18:20 12/10/22 18:30 12/10/22 18:40 Temperature Pulse Rate 76 69 77 Pulse Rate [Pulse Oximeter] Respiratory Rate 14 19 10 L Blood Pressure Blood Pressure [Le ft Upper Arm] Pulse Oximetry 95 96 96 Oxygen Delivery Me thod Oxygen Flow Rate 12/10/22 18:50 12/10/22 19:00 12/10/22 19:10 Temperature Pulse Rate 68 67 83 Pulse Rate [Pulse Oximeter] Respiratory Rate 17 16 31 H Blood Pressure Blood Pressure [Le ft Upper Arm] Pulse Oximetry 96 97 84 L Oxygen Delivery Me thod Oxygen Flow Rate 12/10/22 19:20 12/10/22 19:30 12/10/22 19:40 Temperature Pulse Rate 67 58 L 78 Pulse Rate [Pulse Oximeter] Respiratory Rate 16 15 21 Blood Pressure Blood Pressure [Le ft Upper Arm] Pulse Oximetry 97 96 97 Oxygen Delivery Me thod Oxygen Flow Rate 12/10/22 19:50 12/10/22 20:01 12/10/22 20:10 Temperature Pulse Rate 84 73 76 Pulse Rate [Pulse Oximeter] Respiratory Rate 19 19 13 Blood Pressure Blood Pressure [Le ft Upper Arm] Pulse Oximetry 92 88 94 Oxygen Delivery Me thod Oxygen Flow Rate 12/10/22 20:20 12/10/22 20:30 12/10/22 20:40 Temperature Pulse Rate 69 59 L 69 Pulse Rate [Pulse Oximeter] Respiratory Rate 13 15 16 Blood Pressure Blood Pressure [Le ft Upper Arm] Pulse Oximetry 93 95 95 Oxygen Delivery Me thod Oxygen Flow Rate 12/10/22 20:42 Temperature Pulse Rate Pulse Rate [Pulse Oximeter] 95 Respiratory Rate 24 Blood Pressure Blood Pressure [Le ft Upper Arm] 144/36 H Pulse Oximetry Oxygen Delivery Me thod Oxygen Flow Rate Hospitalist - H&P: Result Labs Labs: Short CBC 12/10/22 Range/Units 12:40 WBC 14.12 H (4.50-11.00) K/uL Hgb 15.0 (13.5-17.5) gm/dL Hct 45.5 (37.0-53.0) % Plt Count 290 (140-440) K/uL BMP 12/10/22 12:40 Sodium 138 Potassium 3.6 Chloride 101 Carbon Dioxide 28 BUN 20 Creatinine 0.9 Glucose 128 H Calcium 9.8 Liver Function 12/10/22 Range/Units 12:40 Total Bilirubin 0.9 (0.1-1.5) mg/dL AST 34 (12-35) U/L ALT 26 (4-50) U/L Alkaline Phosphatase 99 (40-150) U/L Albumin 4.3 (3.3-5.0) g/dL Urine 12/10/22 Range/Units 14:04 Urine Color Yellow (Yellow) Urine Appearance Clear (Clear) Urine pH 6.0 (5.0-8.5) Ur Specific [place] 1.025 (1.000-1.030) Urine Protein 1+ A (Negative) Urine Glucose (UA) Negative (Negative) 12/10/2022 EKG: Normal sinus rhythm, heart rate 60 beats per minute, normal EKG. Ordering Physician: Dolores Fields M.D. Date of Service: 12/10/22 Procedure(s): XR chest 1V portable Accession Number(s): [id number] cc: Dolores Fields M.D.; Ramesh Deluna M.D.~ For Patients: As a result of the Cures Act, medical imaging exams and procedure reports are released immediately into your electronic medical record. You may view this report before your referring provider. If you have questions, please contact your health care provider. INDICATION: Increasing hypoxia. Pulmonary fibrosis. TECHNIQUE: Chest 1 views. COMPARISON: September 30, 2022. FINDINGS: Cardiovasculature and mediastinum: Unremarkable heart size and mediastinum. Lungs and pleural spaces: Persistent interstitial markings consistent with pulmonary fibrosis. No focal infiltrate. No effusions and no pneumothorax. Bones and soft tissues: No significant findings. IMPRESSION: No acute findings and no significant changes from the prior exam. No specific finding to explain increasing hypoxia. Dictated by Jorge Stauffer MD @ 12/10/2022 2:27:14 PM (Electronically Signed) Ordering Physician: Dolores Fields M.D. Date of Service: 12/10/22 Procedure(s): CT angio chest PE protocol Accession Number(s): [id number] cc: Dolores Fields M.D.; Ramesh Deluna M.D.~ For Patients: As a result of the Cures Act, medical imaging exams and procedure reports are released immediately into your electronic medical record. You may view this report before your referring provider. If you have questions, please contact your health care provider. INDICATION: Worsening hypoxia. TECHNIQUE: CT chest PE was acquired with 95 cc Isovue 370 IV contrast. COMPARISON: September 30, 2022. FINDINGS: Heart and vasculature: Contrast opacification of the pulmonary arterial tree is adequate to the level of the distal segmental pulmonary arteries. No sign of pulmonary embolism to the level of the distal segmental pulmonary arteries. Cardiomegaly with coronary artery calcification. Mild enlargement of the pulmonary arteries. 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 Additional subtle ground-glass attenuation throughout the lungs. No dense consolidations. No pleural effusions, pleural thickening, or pneumothorax. Lymph nodes/mediastinum: Persistent mildly enlarged mediastinal and hilar lymph nodes. Chest wall: No masses. Upper abdomen: Moderate hiatal hernia. No acute or significant findings. Bones: Unremarkable for age. IMPRESSION: No pulmonary embolism to the level of the distal segmental pulmonary arteries. Nondiagnostic evaluation of the subsegmental branches secondary to motion artifact. 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 Some superimposed ground-glass which could suggest superimposed pneumonitis/pneumonia. No large dense consolidations. Cardiomegaly with coronary artery calcifications. Pulmonary hypertension. Please note that all CT scans at this facility use dose modulation, iterative reconstruction, and/or weight-based dosing when appropriate to reduce radiation dose to as low as reasonably achievable. Dictated by Jean Gonzalez MD @ 12/10/2022 5:48:46 PM (Electronically Signed) Assessment and Plan Assessment and plan (1) Pulmonary fibrosis: Problem comment: - Follows with Mathew Akers DO [facility], last saw 08/28/21, has failed to follow up 6 months later and again 1 year later. Had discussed end of life decision making and hospice when needed at that visit - Intolerant of antifibrotics (diarrhea). He does not want to resume (according to pulmonology note). - End stage, progressive, dyspneic talking and turning in bed - patient and his sister desire comfort cares. He is also no longer able to care for himself in his home environment and desires snf placement. Will admit for observation and start comfort cares. Patient agreeable with hospice. Will ask social work to help with discharge planning. Status: Chronic (2) Hypoxia: Problem comment: Secondary to chronic, progressive pulmonary fibrosis Status: Acute (3) Hyperlipidemia: Status: Chronic (4) Mild cognitive impairment with memory loss: Status: Chronic (5) Lewy body dementia without behavioral disturbance: Status: Chronic (6) Hypertension: Status: Chronic (7) Pneumonitis: Status: Acute (8) Weight loss: Problem comment: - 08/28/21 pulm office 208 lbs - 12/10/22 hospital admission 184.4lbs Status: Acute Plan Patient desires comfort cares, will stop usual medications for hypertension and hyperlipidemia as he does not want any life-prolonging measures at this point. He wishes to be DNR DNI.
[2022-12-11] VITALS: RESP 22
--- NOTE | 2022-12-11 06:40 | PC.NURSE ---
END OF SHIFT NOTE: PT?ON COMFORT CARES. DENIES CP AND N/V. PT USED URINAL AT BEDSIDE. ON 4L SUPPLEMENTAL O2 VIA NC FOR COMFORT. PT IS ODOROUS OF URINE; PT WAS OFFERED SEVERAL TIMES WITH HELP TO WASH UP AND CHANGE INTO CLEAN CLOTHES; PT DECLINED. PT WITH ORTHOPNEA AND SOB ON EXERTION.?BED ALARM ON AND CALL LIGHT WITHIN PT?S REACH.
[2022-12-11] MEDS: MORPHINE 10 MG/0.5 ML ORAL SOLN PO ×4 (06:50→19:53)
[2022-12-11 08:30] VITALS: RESP 30
[2022-12-11] MEDS: SODIUM CHLORIDE 0.9 % (FLUSH) 10 ML SYRINGE 5 ML IVF (10:06)
[2022-12-11] MEDS: ACETAMINOPHEN 325 MG TABLET PO (10:06)
[2022-12-11 10:21] VITALS: RESP 28; O2SAT 90
[2022-12-11 12:11] VITALS: O2SAT 94
--- NOTE | 2022-12-11 14:10 | PM.IMPN1 ---
Progress Note: A&P Assessment and plan (1) Acute and chronic respiratory failure with hypoxia: Problem details: Possible acute infection making him acutely worse. Patient is not interested and aggressive treatment or evaluation. Interested in hospice and comfort cares Status: Acute (2) Weight loss: Problem details: - 08/28/21 pulm office 208 lbs - 12/10/22 hospital admission 184.4lbs Status: Acute (3) Mild cognitive impairment with memory loss: Problem details: Patient does not obviously have cognitive impairment when I visit with him today. He scored 26/30 on a [place] today Status: Chronic (4) Failure to thrive in adult: Problem details: Self reporting that he is no longer able to care for himself with his declining health status Status: Acute (5) Pulmonary fibrosis: Problem details: - Follows with Mathew Akers DO [facility], last saw 08/28/21, has failed to follow up 6 months later and again 1 year later. Had discussed end of life decision making and hospice when needed at that visit - Intolerant of antifibrotics (diarrhea). He does not want to resume (according to pulmonology note). - End stage, progressive, dyspneic talking and turning in bed - patient and his sister desire comfort cares. He is also no longer able to care for himself in his home environment and desires skilled nursing placement. Will admit for observation and start comfort cares. Patient agreeable with hospice. Will ask social work to help with discharge planning. Status: Chronic (6) Shortness of breath: Problem details: Severe dyspnea even at rest and intolerant of even the most simple activity. He is appropriate for hospice care and opioid management of his dyspnea. Optimally this would be done supervise by a nurse. Status: Acute (7) History of drug dependence: Problem details: History of substance abuse and ongoing a illicit opioid use. If patient is going to be in hospice I think ongoing opioid treatment for his dyspnea is appropriate though optimally supervised by a nurse. Status: Acute Plan Continue in hospital for management of dyspnea. At patient's request will not aggressively evaluate and treat his respiratory illness. Moved towards palliative care and look into options for appropriate end of life care Time Spent With Patient Total time spent: Total time spent today is 55 minutes, 45 minutes in coordination of care and discussing with patient and other providers management of hypoxic respiratory failure, symptomatic treatment, opioid use and end of life care Subjective Date Seen: 12/11/22 Interval history: Admission HPI: Mo Villafana III is a 82 year old male with a history of severe pulmonary fibrosis presents with progressively worse dyspnea. He last saw his gas substation operator at [facility] about a year and half ago at which time they discussed end of life and the possible need for hospice at some point. Mo had been unable to tolerate fibro lytic medications due to the GI side effects. Since that visit with his gas substation operator he has become progressively more short of breath to the point where he gets short of breath just shifting around in bed or talking. Getting to the bathroom just 10 ft away or less causes him great anxiety because he will have to stop every 2 steps to catch his breath and it takes so long that he is no longer making it to the bathroom on time. He admits to me that his symptoms have been so bad that he has been self medicating by buying OxyContin from a friend. He cuts them into fourths and takes 1 every 5-6 hours. He is starting to run out of his apply and cannot get any more until Friday. He is not been doing well in his apartment because he can no longer get to the bathroom on time and can not make it to the door to get Meals on wheels. His home health provider has been concerned about his ability to be in his apartment for some time and it was recommended back in September when he came to the ER that he go to a skilled nursing, but he did not want to then. When I 1st walked in, he was talking to his sister, Kathi, on the phone and she was part of the conversation to begin with. After I spoke with and examined Mo, Mo gave me permission to call Kathi. I did so outside the room and Kathi told me about his long history of addiction and treatment and about how recently he has been so significantly short of breath and homebound that she is grateful that we are considering hospice for him because he has been miserable. She thinks it will be a great comfort and knows that he has been dying for some time. She is also glad to hear that he is agreeable to go to a skilled nursing because she has also been concerned about his situation in his apartment and how he has been caring for himself. He has been buying ilicit OxyContin from an acquaintance but it is difficult for him to pay for this and he is running out. I discussed with him options for managing his severe dyspnea including Suboxone or if he is in hospice, morphine or oxycodone. Overnight patient still reports severe dyspnea. He reports that this is worse than his baseline though he has been gradually getting worse over the past few years. The only thing that is been helping is his OxyContin. He spoke with the doctor last night and is interested in hospice and possibly retirement facility to care for him. He is not interested in aggressive evaluation or treatment. In the past he has declined antibiotics because they cause diarrhea. Exam Narrative: Exam Narrative: I walk into the room and he is sleeping. I arouse him and he immediately becomes quite dyspneic. On 4 L he is breathing quite rapidly but maintaining his O2 sats in the mid 90s. He is oriented to his circumstances and able to give most of his history. Const: Vital Signs, click to edit/add: Vital Signs - 24 hr 12/10/22 14:43 12/10/22 14:44 12/10/22 14:45 Temperature Pulse Rate 65 65 59 L Pulse Rate [Pulse Oximeter] Respiratory Rate Blood Pressure 144/69 H Blood Pressure [Le ft Upper Arm] Blood Pressure [Ri ght Arm] Pulse Oximetry 88 91 92 Oxygen Delivery Me thod Oxygen Flow Rate 12/10/22 14:50 12/10/22 15:00 12/10/22 15:10 Temperature Pulse Rate 61 62 67 Pulse Rate [Pulse Oximeter] Respiratory Rate Blood Pressure Blood Pressure [Le ft Upper Arm] Blood Pressure [Ri ght Arm] Pulse Oximetry 97 98 98 Oxygen Delivery Me thod Oxygen Flow Rate 12/10/22 15:20 12/10/22 15:30 12/10/22 15:40 Temperature Pulse Rate 74 66 64 Pulse Rate [Pulse Oximeter] Respiratory Rate 28 H 15 Blood Pressure Blood Pressure [Le ft Upper Arm] Blood Pressure [Ri ght Arm] Pulse Oximetry 97 99 96 Oxygen Delivery Me thod Oxygen Flow Rate 12/10/22 15:50 12/10/22 16:30 12/10/22 16:40 Temperature Pulse Rate 74 75 Pulse Rate [Pulse Oximeter] Respiratory Rate 17 Blood Pressure Blood Pressure [Le ft Upper Arm] Blood Pressure [Ri ght Arm] Pulse Oximetry 96 97 Oxygen Delivery Me thod Oxygen Flow Rate 12/10/22 16:50 12/10/22 17:00 12/10/22 17:19 Temperature Pulse Rate 69 61 62 Pulse Rate [Pulse Oximeter] Respiratory Rate Blood Pressure Blood Pressure [Le ft Upper Arm] Blood Pressure [Ri ght Arm] Pulse Oximetry 99 99 98 Oxygen Delivery Me thod Oxygen Flow Rate 12/10/22 17:20 12/10/22 17:30 12/10/22 17:40 Temperature Pulse Rate 61 56 L 70 Pulse Rate [Pulse Oximeter] Respiratory Rate 19 14 17 Blood Pressure Blood Pressure [Le ft Upper Arm] Blood Pressure [Ri ght Arm] Pulse Oximetry 98 97 97 Oxygen Delivery Me thod Oxygen Flow Rate 12/10/22 17:50 12/10/22 18:00 12/10/22 18:10 Temperature Pulse Rate Pulse Rate [Pulse Oximeter] Respiratory Rate 28 H 15 12 Blood Pressure Blood Pressure [Le ft Upper Arm] Blood Pressure [Ri ght Arm] Pulse Oximetry Oxygen Delivery Me thod Oxygen Flow Rate 12/10/22 18:20 12/10/22 18:30 12/10/22 18:40 Temperature Pulse Rate 76 69 77 Pulse Rate [Pulse Oximeter] Respiratory Rate 14 19 10 L Blood Pressure Blood Pressure [Le ft Upper Arm] Blood Pressure [Ri ght Arm] Pulse Oximetry 95 96 96 Oxygen Delivery Me thod Oxygen Flow Rate 12/10/22 18:50 12/10/22 19:00 12/10/22 19:10 Temperature Pulse Rate 68 67 83 Pulse Rate [Pulse Oximeter] Respiratory Rate 17 16 31 H Blood Pressure Blood Pressure [Le ft Upper Arm] Blood Pressure [Ri ght Arm] Pulse Oximetry 96 97 84 L Oxygen Delivery Me thod Oxygen Flow Rate 12/10/22 19:20 12/10/22 19:30 12/10/22 19:40 Temperature Pulse Rate 67 58 L 78 Pulse Rate [Pulse Oximeter] Respiratory Rate 16 15 21 Blood Pressure Blood Pressure [Le ft Upper Arm] Blood Pressure [Ri ght Arm] Pulse Oximetry 97 96 97 Oxygen Delivery Me thod Oxygen Flow Rate 12/10/22 19:50 12/10/22 20:01 12/10/22 20:10 Temperature Pulse Rate 84 73 76 Pulse Rate [Pulse Oximeter] Respiratory Rate 19 19 13 Blood Pressure Blood Pressure [Le ft Upper Arm] Blood Pressure [Ri ght Arm] Pulse Oximetry 92 88 94 Oxygen Delivery Me thod Oxygen Flow Rate 12/10/22 20:20 12/10/22 20:30 12/10/22 20:40 Temperature Pulse Rate 69 59 L 69 Pulse Rate [Pulse Oximeter] Respiratory Rate 13 15 16 Blood Pressure Blood Pressure [Le ft Upper Arm] Blood Pressure [Ri ght Arm] Pulse Oximetry 93 95 95 Oxygen Delivery Me thod Oxygen Flow Rate 12/10/22 20:42 12/10/22 21:13 12/10/22 22:00 Temperature 97.8 F Pulse Rate Pulse Rate [Pulse Oximeter] 95 Respiratory Rate 24 24 24 Blood Pressure Blood Pressure [Le ft Upper Arm] 144/36 H Blood Pressure [Ri ght Arm] 107/70 Pulse Oximetry 94 93 Oxygen Delivery Me thod Nasal Cannula Nasal Cannula Oxygen Flow Rate 4 4 12/11/22 00:00 12/11/22 08:30 12/11/22 10:21 Temperature Pulse Rate Pulse Rate [Pulse Oximeter] Respiratory Rate 22 30 H 28 H Blood Pressure Blood Pressure [Le ft Upper Arm] Blood Pressure [Ri ght Arm] Pulse Oximetry 90 Oxygen Delivery Me thod Nasal Cannula Oxygen Flow Rate 4 12/11/22 12:11 Temperature Pulse Rate Pulse Rate [Pulse Oximeter] Respiratory Rate Blood Pressure Blood Pressure [Le ft Upper Arm] Blood Pressure [Ri ght Arm] Pulse Oximetry 94 Oxygen Delivery Me thod Nasal Cannula Oxygen Flow Rate 2.5 Documenting provider has reviewed patient's vital signs: yes Labs Labs: Laboratory Results - last 24 hr 12/10/22 14:04 Urine Color Yellow Urine Appearance Clear Urine pH 6.0 Ur Specific [place] 1.025 Urine Protein 1+ A Urine Glucose (UA) Negative Urine Ketones Trace A Urine Blood Negative Urine Nitrite Negative Urine Bilirubin Negative Urine Urobilinogen 0.2 Ur Leukocyte Esterase Negative Urine RBC 0-2 Urine WBC 0-2 Ur Squamous Epith Cells None Urine Bacteria None
--- NOTE | 2022-12-11 14:50 | REH.PT ---
Pt refused PT eval x2 today. Will attempt eval tomorrow if appropriate.
--- NOTE | 2022-12-11 15:51 | PC.SOCIAL ---
Received a phone call from Selam at [facility]. Selam requests that she be updated on discharge plans as they are available. Selam can be reached at [phone]. Social work will provide an update as available.
[2022-12-11 16:00] VITALS: RESP 24; O2SAT 93
--- NOTE | 2022-12-11 18:29 | PC.NURSE ---
Addendum entered by Tracey Bui RN 12/11/22 18:53: PATIENT REFUSED ALL ORAL CARES, DESPITE MULTIPLE ASKS WELL A BED BATH THIS SHIFT. Original Note: End of Shift... No VS, comfort care is priority. O2 is on for comfort with the patients increased SOB. Orders to titrate up to 4L PRN. O2 is set @ 2.5L, he reports he is comfortable. PRN liquid morphine q1 for comfort. Pt has not voided pe rpatient since early this AM. PO liquid intake is poor. Call light within reach, bed alarm is on. No other concerns at this time.
[2022-12-11 23:00] VITALS: RESP 20; RESP 24; O2SAT 93
[2022-12-12] MEDS: MORPHINE 10 MG/0.5 ML ORAL SOLN PO ×11 (02:50→22:29)
--- NOTE | 2022-12-12 06:23 | PC.NURSE ---
Shift note: Pt continue to be on comfort care. intermittent pain of about 7/10 reported and 2x PRN Morphine PO given. Pt has been on 2L oxygen throughout the night. Pt had severe exertional SOB which required temporary increase of oxygen level until stable. Pt had adequate sleep.
[2022-12-12 08:00] VITALS: RESP 22; O2SAT 92
[2022-12-12] MEDS: fentaNYL 25 MCG/HR PATCH 1 PATCH TRANSDERMA (08:22)
[2022-12-12] MEDS: SENNOSIDES 1 TAB TABLET 2 TAB PO (09:31)
--- NOTE | 2022-12-12 09:53 | REH.PT ---
Pt not appropriate for PT per MD Murphy. Eval & Treat orders discontinued
--- NOTE | 2022-12-12 11:53 | P.IMPN_ITS ---
Progress Note: A&P Assessment and plan (1) Acute and chronic respiratory failure with hypoxia: Problem details: Possible acute infection making him acutely worse. Patient is not interested and aggressive treatment or evaluation. Interested in hospice and comfort cares Status: Acute (2) Pneumonitis: Problem details: Clinically suspected pneumonia superimposed on chronic pulmonary fibrosis as the cause of acute on chronic hypoxic respiratory failure. Patient seeking hospice care Status: Acute (3) Weight loss: Problem details: - 08/28/21 pulm office 208 lbs - 12/10/22 hospital admission 184.4lbs Status: Acute (4) Mild cognitive impairment with memory loss: Problem details: Patient does not obviously have cognitive impairment when I visit with him today. He scored 26/30 on a [place] today Status: Chronic (5) Failure to thrive in adult: Problem details: Self reporting that he is no longer able to care for himself with his declining health status Status: Acute (6) Pulmonary fibrosis: Problem details: - Follows with Mathew Akers DO [facility], last saw 08/28/21, has failed to follow up 6 months later and again 1 year later. Had discussed end of life decision making and hospice when needed at that visit - Intolerant of antifibrotics (diarrhea). He does not want to resume (according to pulmonology note). - End stage, progressive, dyspneic talking and turning in bed - patient and his sister desire comfort cares. He is also no longer able to care for himself in [place] environment and [place]. Will admit for observation and start comfort cares. Patient agreeable with hospice. Will ask social work to help with discharge planning. Status: Chronic (7) Shortness of breath: Problem details: Severe dyspnea even at rest and intolerant of even the most simple activity. He is appropriate for hospice care and opioid management of his dyspnea. Optimally this would be done supervise by a nurse. Continue p.r.n. morphine and add in Duragesic patch. Status: Acute (8) History of drug dependence: Problem details: History of substance abuse and ongoing a illicit opioid use. If patient is going to be in hospice I think ongoing opioid treatment for his dyspnea is appropriate though optimally supervised by a nurse. Status: Acute (9) Constipation: Problem details: History of both constipation and diarrhea. Suspect this is due to previous opioid use causing constipation and withdrawal causing diarrhea. Initiate laxatives cautiously now to avoid severe constipation. Status: Acute Plan Continue in hospital for comfort cares, supplemental oxygen, opioid medicines for dyspnea pending discharge plan to hospice care Time Spent With Patient Total time spent: Total time spent today is 35 minutes, essentially all that time in discussing end of life care with patient and other care providers Subjective Date Seen: 12/12/22 Interval history: Admission HPI: Mo Villafana III is a 82 year old male with a history of severe pulmonary fibrosis presents with progressively worse dyspnea. He last saw his shot fireman at [facility] about a year and half ago at which time they discussed end of life and the possible need for hospice at some point. Mo had been unable to tolerate fibro lytic medications due to the GI side effects. Since that visit with his shot fireman he has become progressively more short of breath to the point where he gets short of breath just shifting around in bed or talking. Getting to the bathroom just 10 ft away or less causes him great anxiety because he will have to stop every 2 steps to catch his breath and it takes so long that he is no longer making it to the bathroom on time. He admits to me that his symptoms have been so bad that he has been self medicating by buying OxyContin from a friend. He cuts them into fourths and takes 1 every 5-6 hours. He is starting to run out of his apply and cannot get any more until Friday. He is not been doing well in his apartment because he can no longer get to the bathroom on time and can not make it to the door to get Meals on wheels. His home health provider has been concerned about his ability to be in his apartment for some time and it was recommended back in September when he came to the [place] that [place] go [place] a [place], but he did not want to then. When I 1st walked in, he was talking to his sister, Kathi, on the phone and she was part of the conversation to begin with. After I spoke with and examined Mo, Mo gave me permission to call Kathi. I did so outside the room and Kathi told me about his long history of addiction and treatment and about how recently he has been so significantly short of breath and homebound that she is grateful that we are considering hospice for him because he has been miserable. She thinks it will be a great comfort and knows that he has been dying for some time. She is also glad to hear that he is agreeable to go to a [place] because she has also been concerned about his situation in his apartment and how he has been caring for himself. He has been buying ilicit OxyContin from an acquaintance but it is difficult for him to pay for this and he is running out. I discussed with him options for managing his severe dyspnea including Suboxone or if he is in hospice, morphine or oxycodone. Overnight patient still reports severe dyspnea. He reports that this is worse than his baseline though he has been gradually getting worse over the past few years. The only thing that is been helping is his OxyContin. He spoke with the doctor last night and is interested in hospice and possibly care home facility to care for him. He is not interested in aggressive evaluation or treatment. In the past he has declined antibiotics because they cause diarrhea. Patient reports not wanting to get out of bed even to use the commode. He reports he gets so dyspneic with just standing and transferring to the commode that it is quite intolerable. He has been using modest amounts of p.r.n. morphine. I again reviewed with him my concern that he has pneumonia causing an acute worsening of his breathing. We discussed whether he would like medical treatment understanding that his underlying lung disease with still be disabling and severe. He tells me again today that he does not want any antibiotic treatment. He is seeking comfort cares and interested in enrolling in hospice. He is also interested in finding a place he can be cared for by others rather than returning home. He has a history of both constipation and diarrhea. Possibly related to both opioid use causing constipation and opioid withdrawal causing diarrhea. No bowel movement since he has been here. He reports he would rather at half to do a bowel movement because he gets so winded transferring to the commode Exam Narrative: Exam Narrative: He is alert and appears in no distress. He is oriented to his circumstances and able to carry on a conversation. He does get breathless when talking. Breathing with increased rate and work of breathing. Abdomen is soft without tenderness. Const: Vital Signs, click to edit/add: Vital Signs - 24 hr 12/11/22 12:11 12/11/22 16:00 12/11/22 23:00 Respiratory Rate 24 24 Pulse Oximetry 94 93 Oxygen Delivery Me thod Nasal Cannula Nasal Cannula Oxygen Flow Rate 2.5 2 12/11/22 23:00 12/12/22 08:00 Respiratory Rate 20 22 Pulse Oximetry 93 92 Oxygen Delivery Me thod Nasal Cannula Nasal Cannula Oxygen Flow Rate 2 3
--- NOTE | 2022-12-12 12:12 | PC.SOCIAL ---
Discharge planning- Met with pt in room to discuss discharge plans. Pt is agreeable to go to SNF long-term and would like hospice in place. Pt is wanting to go to a SNF near his sister in [place]. Pt asks that this worker call his sister Kathi at [phone]. Phone call with pt's sister (Kathi). Kathi informs that she would like pt near her in [place] at a SNF. Kathi states she is interested in hospice services. This worker informs that this worker will contact SNF's near [place] and keep pt and pt's sister updated. Phone calls to the following SNF's for possible placement. 1. [facility] in [place]- Phone call to Lavonne in admissions at [phone]. They have openings. Faxed referral to [phone]. 2. [facility] [place]- Phone call to Angelina at [phone]. There is no availability at this time. 3. [facility]- Phone call to admissions at [phone]. Left a voicemail inquiring on bed availability. Per voicemail they are accepting referrals. Faxed referral to [phone]. 4. [facility]- Phone call to admissions and left a voicemail inquiring on bed availability. 5. [facility] in [place]- Phone call to admissions at [phone]. Left a voicemail with Radha Jaramillo inquiring on bed availability. 6. [facility] in [place]- Phone call to admissions at [phone]. There is no availability, possible opening in a week and can check back. 7. [facility]- Phone call to admissions at [phone]. Left voicemail inquiring on bed availability. 8. [facility]- Phone call to admissions at [phone]. Left a voicemail with [employer] inquiring on bed availability. Social work will continue to follow up as needed.
--- NOTE | 2022-12-12 13:13 | PC.NURSE ---
shift note: pt medicated for lt shoulder and lower back pain throughout the morning with roxanol. pt rating pain level 5-7/10. pt states he has minimal relief with pain medication. Pt repositioning self in bed to assist with comfort and pt napping between 1 hour visual checks.
[2022-12-12 15:00] VITALS: RESP 18; O2SAT 94
[2022-12-12 23:00] VITALS: RESP 18; O2SAT 92
--- NOTE | 2022-12-12 23:20 | PC.NURSE ---
End of shift-- Pt alert and oriented and primarily cooperative. Crackles auscultated in posterior bases of lungs. SPO2 maintained >90% on 2L at rest and with 4L per n.c. with exertion. Pt does become very SOB with exertion and is slow to recover. Pt c/o general pain which he rated as high as 7 out of 10 and was given PRN Roxanol every hour or so. Pt had huge formed BM this evening. Report to MIK [place].
[2022-12-13] MEDS: MORPHINE 10 MG/0.5 ML ORAL SOLN PO ×10 (01:22→23:10)
[2022-12-13] MEDS: LORazepam 1 MG TABLET PO ×2 (03:41→23:09)
--- NOTE | 2022-12-13 06:08 | PC.NURSE ---
Shift note: Pt continue to be on comfort care. 2L of oxygen at rest and increase to 4L during activity. O2 desaturate with activity. Pt asked for pain medication every 2 hours. Rating pain 10. Pt wake up early tonight at 0330. Has been watching TV since. Able turn and reposition himself in bed.
[2022-12-13 07:00] VITALS: RESP 18; O2SAT 94
--- NOTE | 2022-12-13 10:51 | PM.IMPN1 ---
Progress Note: A&P Assessment and plan (1) Acute and chronic respiratory failure with hypoxia: Problem details: Possible acute infection making him acutely worse. Patient is not interested and aggressive treatment or evaluation. Interested in hospice and comfort cares Status: Acute (2) Pneumonitis: Problem details: Clinically suspected pneumonia superimposed on chronic pulmonary fibrosis as the cause of acute on chronic hypoxic respiratory failure. Patient seeking hospice care Status: Acute (3) Weight loss: Problem details: - 08/28/21 pulm office 208 lbs - 12/10/22 hospital admission 184.4lbs Status: Acute (4) Mild cognitive impairment with memory loss: Problem details: Patient does not obviously have cognitive impairment when I visit with him today. He scored 26/30 on a Brown the 1st day in the hospital Status: Chronic (5) Failure to thrive in adult: Problem details: Self reporting that he is no longer able to care for himself with his declining health status Status: Acute (6) Pulmonary fibrosis: Problem details: - Follows with Mathew Akers DO [facility], last saw 08/28/21, has failed to follow up 6 months later and again 1 year later. Had discussed end of life decision making and hospice when needed at that visit - Intolerant of antifibrotics (diarrhea). He does not want to resume (according to pulmonology note). - End stage, progressive, dyspneic talking and turning in bed - patient and his sister desire comfort cares. He is also no longer able to care for himself in his home environment and desires long term placement. Will admit for observation and start comfort cares. Patient agreeable with hospice. Will ask social work to help with discharge planning. Status: Chronic (7) Shortness of breath: Problem details: Severe dyspnea even at rest and intolerant of even the most simple activity. He is appropriate for hospice care and opioid management of his dyspnea. Optimally this would be done supervise by a nurse. Continue p.r.n. morphine and add in Duragesic patch. Doing much better today with comfort along the Duragesic patch Status: Acute (8) History of drug dependence: Problem details: History of substance abuse and ongoing a illicit opioid use. If patient is going to be in hospice I think ongoing opioid treatment for his dyspnea is appropriate though optimally supervised by a nurse. Status: Acute (9) Constipation: Problem details: History of both constipation and diarrhea. Suspect this is due to previous opioid use causing constipation and withdrawal causing diarrhea. Initiate laxatives cautiously now to avoid severe constipation. Status: Acute Plan Continue to manage his hypoxic respiratory failure and palliative care pending transfer to a facility where he can receive hospice care Time Spent With Patient Total time spent: Total time spent today is 35 minutes, 30 minutes in coordination of care discussing with patient and his sister and other providers management of dyspnea and disposition Subjective Date Seen: 12/13/22 Interval history: Admission HPI: Mo Villafana III is a 82 year old male with a history of severe pulmonary fibrosis presents with progressively worse dyspnea. He last saw his barometers calibrator at [facility] about a year and half ago at which time they discussed end of life and the possible need for hospice at some point. Mo had been unable to tolerate fibro lytic medications due to the GI side effects. Since that visit with his barometers calibrator he has become progressively more short of breath to the point where he gets short of breath just shifting around in bed or talking. Getting to the bathroom just 10 ft away or less causes him great anxiety because he will have to stop every 2 steps to catch his breath and it takes so long that he is no longer making it to the bathroom on time. He admits to me that his symptoms have been so bad that he has been self medicating by buying OxyContin from a friend. He cuts them into fourths and takes 1 every 5-6 hours. He is starting to run out of his apply and cannot get any more until Friday. He is not been doing well in his apartment because he can no longer get to the bathroom on time and can not make it to the door to get Meals on wheels. His home health provider has been concerned about his ability to be in his apartment for some time and it was recommended back in September when he came to the ER that he go to a long term, but he did not want to then. When I 1st walked in, he was talking to his sister, Kathi, on the phone and she was part of the conversation to begin with. After I spoke with and examined Mo, Mo gave me permission to call Kathi. I did so outside the room and Kathi told me about his long history of addiction and treatment and about how recently he has been so significantly short of breath and homebound that she is grateful that we are considering hospice for him because he has been miserable. She thinks it will be a great comfort and knows that he has been dying for some time. She is also glad to hear that he is agreeable to go to a long term because she has also been concerned about his situation in his apartment and how he has been caring for himself. He has been buying ilicit OxyContin from an acquaintance but it is difficult for him to pay for this and he is running out. I discussed with him options for managing his severe dyspnea including Suboxone or if he is in hospice, morphine or oxycodone. Overnight patient still reports severe dyspnea. He reports that this is worse than his baseline though he has been gradually getting worse over the past few years. The only thing that is been helping is his OxyContin. He spoke with the doctor last night and is interested in hospice and possibly nursing home facility to care for him. He is not interested in aggressive evaluation or treatment. In the past he has declined antibiotics because they cause diarrhea. Patient reports not wanting to get out of bed even to use the commode. He reports he gets so dyspneic with just standing and transferring to the commode that it is quite intolerable. He has been using modest amounts of p.r.n. morphine. I again reviewed with him my concern that he has pneumonia causing an acute worsening of his breathing. We discussed whether he would like medical treatment understanding that his underlying lung disease with still be disabling and severe. He tells me again today that he does not want any antibiotic treatment. He is seeking comfort cares and interested in enrolling in hospice. He is also interested in finding a place he can be cared for by others rather than returning home. He has a history of both constipation and diarrhea. Possibly related to both opioid use causing constipation and opioid withdrawal causing diarrhea. No bowel movement since he has been here. He reports he would rather at half to do a bowel movement because he gets so winded transferring to the commode Overnight patient reports he was doing much better. He is more comfortable with the fentanyl patch and increased doses of morphine. He was frustrated by the nurse is turning down his oxygen when his oxygen saturations got into the upper 90s. I recommend just continuing oxygen at 4 L per nasal cannula and not monitoring oximetry. Exam Narrative: Exam Narrative: He is alert and oriented and able to give his own history. Respirations with fine crackles heard throughout his lung braswell more prominent the bases. Marked decreased breath sounds. Cardiovascular: S1, S2, regular rate and rhythm. Abdomen is soft without tenderness. Extremities without edema. Const: Vital Signs, click to edit/add: Vital Signs - 24 hr 12/12/22 15:00 12/12/22 15:00 12/12/22 23:00 Respiratory Rate 18 18 18 Pulse Oximetry 94 Oxygen Delivery Me thod Nasal Cannula Oxygen Flow Rate 2 12/12/22 23:00 12/13/22 07:00 12/13/22 07:00 Respiratory Rate 18 18 18 Pulse Oximetry 92 94 Oxygen Delivery Me thod Nasal Cannula Nasal Cannula Oxygen Flow Rate 2 4 Documenting provider has reviewed patient's vital signs: yes
[2022-12-13 15:00] VITALS: RESP 18; O2SAT 94
--- NOTE | 2022-12-13 15:43 | NUTR.NU ---
RDN with RN consult for nutrition risk. Pt admitted with SOB and choosing hospice status. SW seeking placement. Pt eating mostly 50-75%. Visited with pt to inform pt of snack and supplement options. Pt states he is satisfied with the meals and declined additional snacks or supplements. RN able to provide snacks from the floor kitchen. No further follow up planned.
--- NOTE | 2022-12-13 16:34 | PC.SOCIAL ---
Discharge planning- phone call to [facility] in [place]. There are openings. Faxed referral to [phone]. Received a phone call from Ana at [facility] informing that they can accept pt for admission for Friday12/16/22. Phone number to call on Friday is [phone]. Orders can be faxed to [phone]. [facility] requests that pt have an order for Hospice sent with orders and they will set up hospice services. Ana will update this worker on Friday if pt can have a private room. This worker will keep [facility] updated on discharge timeframe on Friday morning. Met with pt and provided update. Pt was happy to be near pt's sister, but does not want to share a room. Pt called his sister, Kathi, and she was pleased that pt would be so close to her home. Provided update to charge nurse. Social work will follow up as needed.
--- NOTE | 2022-12-13 18:26 | PC.NURSE ---
End of Shift: Pt AO but forgetful throughout shift. Remained on 4L O2 NC. Pain rated between 0-7/10, well-controlled with morphine. Continent with bladder with BSC. No BM throughout shift. Patch present on right shoulder.
--- NOTE | 2022-12-13 20:04 | PC.NURSE ---
Pt is accepted at [facility]. on Friday in [place]. phone [phone] pt will need a hospice ordered for discharge. non emergent EMS
[2022-12-13 22:10] VITALS: RESP 18; O2SAT 94
[2022-12-14] MEDS: MORPHINE 10 MG/0.5 ML ORAL SOLN PO ×7 (01:53→22:33)
--- NOTE | 2022-12-14 04:14 | PC.NURSE ---
Pt rested comfortably this night. Pain controlled. Pt able to move on his own. Using bedside commode and urinal. Cooperative.
[2022-12-14 07:00] VITALS: RESP 18; O2SAT 94
--- NOTE | 2022-12-14 08:11 | PM.IMPN1 ---
Progress Note: A&P Assessment and plan (1) Acute and chronic respiratory failure with hypoxia: Problem details: -ongoing comfort cares/hospice placement via social work Status: Acute (2) Pulmonary fibrosis: Problem details: - Follows with Mathew Akers DO [facility], last saw 08/28/21, has failed to follow up 6 months later and again 1 year later. Had discussed end of life decision making and hospice when needed at that visit - Intolerant of antifibrotics (diarrhea). He does not want to resume (according to pulmonology note). - End stage, progressive, dyspneic talking and turning in bed - patient and his sister desire comfort cares. He is also no longer able to care for himself in his home environment and desires shelter placement. Will admit for observation and start comfort cares. Patient agreeable with hospice. Will ask social work to help with discharge planning. Status: Chronic (3) Lewy body dementia without behavioral disturbance: Status: Chronic (4) Failure to thrive in adult: Problem details: Self reporting that he is no longer able to care for himself with his declining health status Status: Acute (5) History of drug dependence: Problem details: History of substance abuse and ongoing a illicit opioid use. If patient is going to be in hospice I think ongoing opioid treatment for his dyspnea is appropriate though optimally supervised by a nurse. Status: Acute Subjective Date Seen: 12/14/22 Interval history: Daily Progress Note - Hospital Medicine #: CC: OVERNIGHT UPDATES FROM STAFF & MED, LAB, IMAGING UPDATES Pt rested comfortably this night. Pain controlled. Pt able to move on his own. Using bedside commode and urinal. Cooperative. Respiratory rate has been less labored. Eighteen. Pulse ox 94%, 4 L per nasal cannula No new labs No new imaging Morphine and lorazepam have been given liberally for end of life care. Fentanyl 25 dragan patch continues. Objective: Vitals: see above Lungs: Clear. Cardiac: S1S2. Disposition/Potential discharge - Likely to return to previous living situation. Today I spent 50minutes seeing the patient, reviewing Expanse and EPIC notes/diagnostics, discussing the care plan with our care time that includes social work, PT/OT, pharmacy, RT, assisted and documenting my impressions and plan in the medical record. Prolonged Physician Services [id number] ([facility]) in conjunction with: 99187 (subsequent visit; 50 mins + 15 mins prolonged services = 65 mins total) I then went back for 15 mins to discuss the findings of ..... Alcohol 64084 >30 mins. We went over all the stigmata of alcoholism I see in this patient. I discussed the effects of chronic alcohol on the brain, liver, and heart. I recommended complete abstinence from alcohol and instructed on programs available at discharge from acute care. Smoking/Tobacco 74241 >10 mins. I went over the clinical stigmata of chronic tobacco use on the body. I explained the effect on the vasculature, lungs, heart, skin. I recommended complete abstinence from tobacco products and instructed on programs available at discharge from acute care. ACP first 30 mins [id number] I went over options for care during this current hospitalization and explained the difference between palliative care and hospice care. I described the likelihood of returning to previous functioning and what the options are going forward for care. Exam Const: Vital Signs, click to edit/add: Vital Signs - 24 hr 12/13/22 15:00 12/13/22 15:00 12/13/22 22:10 Respiratory Rate 18 18 18 Pulse Oximetry 94 Oxygen Delivery Me thod Nasal Cannula Oxygen Flow Rate 4 12/13/22 22:10 Respiratory Rate 18 Pulse Oximetry 94 Oxygen Delivery Me thod Nasal Cannula Oxygen Flow Rate 4
[2022-12-14] MEDS: LORazepam 1 MG TABLET PO ×2 (12:15→22:33)
[2022-12-14 15:00] VITALS: RESP 20; O2SAT 94
--- NOTE | 2022-12-14 17:46 | PC.NURSE ---
[facility] called and pharmacy informations was obtained for discharge. Pharmacy in pt's chart updated to [facility].
--- NOTE | 2022-12-14 18:40 | PC.NURSE ---
End of Shift: Pt reported pain between 0-7/10. Comfortable and well-controlled with morphine. Some agitation noted, improved with one dose of PRN ativan. Continent with bladder, no BM throughout shift. Pt received bed bath and bedding change by male JESSICA per pt request.
[2022-12-14 22:39] VITALS: RESP 20; O2SAT 94
[2022-12-15] MEDS: MORPHINE 10 MG/0.5 ML ORAL SOLN PO ×8 (02:31→21:01)
--- NOTE | 2022-12-15 06:05 | PC.NURSE ---
Pt rested well this night. Pain controlled. Still able to do things on his own at bedside.
[2022-12-15 07:00] VITALS: RESP 20; O2SAT 94
[2022-12-15] MEDS: fentaNYL 25 MCG/HR PATCH 1 PATCH TRANSDERMA (08:49)
[2022-12-15] MEDS: LORazepam 1 MG TABLET PO ×2 (09:26→21:02)
--- NOTE | 2022-12-15 12:53 | PM.IMPN1 ---
Progress Note: A&P Assessment and plan (1) Acute and chronic respiratory failure with hypoxia: Problem details: -ongoing comfort cares/hospice placement via social work Status: Acute (2) Pulmonary fibrosis: Problem details: - Follows with Mathew Akers DO [facility], last saw 08/28/21, has failed to follow up 6 months later and again 1 year later. Had discussed end of life decision making and hospice when needed at that visit - Intolerant of antifibrotics (diarrhea). He does not want to resume (according to pulmonology note). - End stage, progressive, dyspneic talking and turning in bed - patient and his sister desire comfort cares. He is also no longer able to care for himself in his home environment and desires correction placement. Will admit for observation and start comfort cares. Patient agreeable with hospice. Will ask social work to help with discharge planning. Status: Chronic (3) Lewy body dementia without behavioral disturbance: Status: Chronic (4) Failure to thrive in adult: Problem details: Self reporting that he is no longer able to care for himself with his declining health status Status: Acute (5) History of drug dependence: Problem details: History of substance abuse and ongoing a illicit opioid use. If patient is going to be in hospice I think ongoing opioid treatment for his dyspnea is appropriate though optimally supervised by a nurse. Status: Acute Subjective Date Seen: 12/15/22 Interval history: Daily Progress Note - Hospital Medicine #: 6 CC: end stage ILD - comfort cares. OVERNIGHT UPDATES FROM STAFF & MED, LAB, IMAGING UPDATES Pt rested comfortably this night. Pain controlled. Pt able to move on his own. Using bedside commode and urinal. Cooperative. Respiratory rate has been less labored. Eighteen. Pulse ox 94%, 4 L per nasal cannula No new labs No new imaging Morphine and lorazepam have been given liberally for end of life care. Fentanyl 25 dragan patch continues. Objective: Vitals: see above Lungs: Clear. Cardiac: S1S2. Disposition/Potential discharge - Likely to return to previous living situation. Today I spent 50minutes seeing the patient, reviewing Expanse and EPIC notes/diagnostics, discussing the care plan with our care time that includes social work, PT/OT, pharmacy, RT, correction and documenting my impressions and plan in the medical record. Exam Const: Vital Signs, click to edit/add: Vital Signs - 24 hr 12/14/22 15:00 12/14/22 15:00 12/14/22 22:39 Respiratory Rate 20 20 20 Pulse Oximetry 94 Oxygen Delivery Me thod Nasal Cannula Oxygen Flow Rate 4 12/14/22 22:39 12/15/22 07:00 12/15/22 07:00 Respiratory Rate 20 20 20 Pulse Oximetry 94 94 Oxygen Delivery Me thod Nasal Cannula Nasal Cannula Oxygen Flow Rate 4 4
[2022-12-15 15:00] VITALS: RESP 20; O2SAT 93
--- NOTE | 2022-12-15 16:59 | P.DS_ITS ---
DS: Providers Provider Date Seen: 12/15/22 Date of admission: 12/10/22 20:47 Primary care physician: Ramesh Deluna MD Admitting Clinician: Emely Edge MD Consults: 12/10/22 22:33 Consult to Security Shift Supervisor [CONS] Routine Comment: Reason for Consult:: Possible SNF placement 12/11/22 07:27 Consult to Occupational Therapy [CONS] Routine Comment: Reason(s) for OT Consult:: Evaluate and Treat Any Restrictions?:: No Restrictions Comment: cognitive eval Attending Physician on discharge: aTylor Ely MD [address] Hospitalist Date of Discharge: 12/16/22 DS: Diagnosis Discharge Diagnosis (1) Acute and chronic respiratory failure with hypoxia: Status: Acute Problem details: -ongoing comfort cares/hospice placement via social work (2) Pulmonary fibrosis: Status: Chronic Problem details: - Follows with Mathew Akers DO [facility], last saw 08/28/21, has failed to follow up 6 months later and again 1 year later. Had discussed end of life decision making and hospice when needed at that visit - Intolerant of antifibrotics (diarrhea). He does not want to resume (according to pulmonology note). - End stage, progressive, dyspneic talking and turning in bed - patient and his sister desire comfort cares. He is also no longer able to care for himself in his home environment and desires retirement placement. Will admit for observation and start comfort cares. Patient agreeable with hospice. Will ask social work to help with discharge planning. (3) Failure to thrive in adult: Status: Acute Problem details: Self reporting that he is no longer able to care for himself with his declining health status (4) History of drug dependence: Status: Acute Problem details: History of substance abuse and ongoing a illicit opioid use. If patient is going to be in hospice I think ongoing opioid treatment for his dyspnea is appropriate though optimally supervised by a nurse. (5) Constipation: Status: Acute Problem details: History of both constipation and diarrhea. Suspect this is due to previous opioid use causing constipation and withdrawal causing diarrhea. Initiate laxatives cautiously now to avoid severe constipation. (6) Lewy body dementia without behavioral disturbance: Status: Chronic DS: Summary Hospital Course Hospital Course: HOSPITALIST DISCHARGE SUMMARY ATTENDING PHYSICIAN: Taylor Ely MD FINAL DIAGNOSIS/FOLLOW UP ISSUES: Chronic lung disease, specifically ILD, end-stage Lewy body dementia Deconditioned, frail elderly History of polysubstance abuse BRIEF HOSPITAL COURSE: Mo was admitted with acute on chronic hypercapnic and hypoxic respiratory failure. This is likely to progressive end-stage interstitial lung disease. After his initial workup and consultation, Mo shows to be comfort cares and pursue hospice placement near family. He was kept comfortable with sublingual morphine and fentanyl Duragesic. He needed intermittent Ativan for shortness of breath and anxiety. We kept him as comfortable as possible. He has been accepted for admission to a [facility] facility near his sister in the [facility]. He will be admitted to hospice from there. DISCHARGE MEDICATIONS: See Reconciled list - SIGNIFICANT CHANGES: Fentanyl 50 mcg Duragesic Morphine 5-10 mg sublingual Q 1-4 hours p.r.n. Ativan 1-2 mg p.o. Q 1-2 hours p.r.n. REVIEW OF SYSTEMS Ongoing severe dyspnea Pain better controlled No voiding difficulties Tolerating diet challenge PHYSICAL EXAM: CONSTITUTIONAL: Cachectic, poor dentition, weak. VITAL SIGNS: see record. HEENT: Normocephalic, atraumatic. PERRL, EOMI, conjunctivae pink, no scleral icterus. Ears and nose externally normal. Pharynx normal. NECK: No JVD. No carotid bruit, no thyromegaly, no adenopathy. CHEST: Shallow inspiration. Scattered rhonchi. HEART: S1 and S2 normal. Edema minimal ABDOMEN: Soft, nontender. Normal bowel sounds. MUSCULOSKELETAL: No gross joint deformity or swelling. NEURO: Cranial nerves intact. Grossly intact. No asymmetric findings. SKIN: No rashes, petechiae, concerning changes PSYCHIATRIC: Mood euthymic. DISPOSITION: SNF Time spent on discharge 37 minutes. Status at Discharge Functional status at discharge: wheelchair bound Overall status at discharge: patient is not back to baseline Time Spent with Patient Time attestation: Total time spent providing and/or coordinating discharge services: Time spent: Greater than 30 minutes Exam Const: Vital Signs, click to edit/add: Vital Signs - 24 hr 12/14/22 22:39 12/14/22 22:39 12/15/22 07:00 Respiratory Rate 20 20 20 Pulse Oximetry 94 Oxygen Delivery Me thod Nasal Cannula Oxygen Flow Rate 4 12/15/22 07:00 12/15/22 15:00 12/15/22 15:00 Respiratory Rate 20 20 20 Pulse Oximetry 94 93 Oxygen Delivery Me thod Nasal Cannula Nasal Cannula Oxygen Flow Rate 4 4 Discharge Plan Discharge Disposition: Xfer [facility] Date of Admission: 12/10/22 20:47 Attending Provider on Discharge: Taylor Ely Primary Care Provider: Ramesh Deluna Condition: Guarded Discharge Medications: New fentanyl 50 mcg/hr patch 72 hour 1 patch transdermal Q72H Qty: 5 0RF sennosides [Senna Lax] 8.6 mg Tablet 8.6 mg PO BID PRNQty: 60 0RF acetaminophen 325 mg Tablet 325 - 975 mg PO Q6H PRNQty: 90 0RF haloperidol 5 mg Tablet 2.5 - 7.5 mg PO Q4H PRN (Reason: Delerium) Qty: 30 0RF lorazepam 1 mg Tablet 0.5 - 2 mg PO Q1H PRNQty: 30 0RF ondansetron 4 mg Tablet,Disintegrating 4 - 8 mg PO Q4H PRN (Reason: nausea/vomiting) Qty: 30 0RF morphine concentrate 10 mg/0.5 mL Syringe 1 - 10 mg PO Q1H PRN (Reason: dyspnea) Qty: 30 0RF Continued hydralazine 10 mg tablet 10 mg PO BID atorvastatin 20 mg tablet 20 mg PO DAILY donepezil 10 mg tablet 10 mg PO DAILY amlodipine 2.5 mg tablet 7.5 mg PO DAILY hydrochlorothiazide 25 mg tablet 25 mg PO DAILY memantine 10 mg tablet 10 mg PO BID metoprolol tartrate 25 mg tablet 25 mg PO BID aspirin 325 mg tablet 325 mg PO DAILY Discharge Orders: Discharge Order (Routine); Ordered 12/15/22 Ordered By: Taylor Ely Additional Instructions: PLEASE CONSULT HOSPICE FOR END STAGE INTERSTITIAL LUNG DISEASE. Activity Level: Activity as Tolerated Discharge Diet: Regular Follow Up Appointments: Ramesh Deluna MD [Primary Care Provider] - Admit to: SNF Discharge Potential: Poor Length of Stay: <30 days Can use facility standing orders?: Yes Code Status: DNR/DNI TEDs: N/A Rehab Potential: Poor Oxygen: Yes Oxygen Delivery Method: Nasal Cannula Oxygen Flow Rate: Whatever makes patient comfortable. Hospice Evaluate and Admit: yes please. Chronic Lung Disease, severe/end-stage. ILD. Orders are good >30 days: Yes
[2022-12-15] MEDS: fentaNYL 50 MCG/HR PATCH 1 PATCH TRANSDERMA (18:28)
--- NOTE | 2022-12-15 18:54 | PC.NURSE ---
End of Shift: Pt remains on comfort care protocol. One visitor today. Pain well controlled with morphine and fentanyl patch, anxiousness improved with ativan. Pt requesting morphine more often, fentanyl patch increased to 50mcg. Patch swapped out with previous 25mcg patch. Pt continent with bladder with BSC/urinal. No BM throughout shift. Tolerating regular diet well.
[2022-12-15 23:20] VITALS: RESP 20; O2SAT 93
[2022-12-16] MEDS: MORPHINE 10 MG/0.5 ML ORAL SOLN PO ×4 (00:03→09:45)
[2022-12-16] MEDS: LORazepam 1 MG TABLET PO ×2 (00:06→07:19)
[2022-12-16 09:00] VITALS: O2SAT 92
--- NOTE | 2022-12-16 10:18 | PC.SOCIAL ---
Discharge planning- Charge nurse set non-emergency transfer for 10:30 am. Completed Preadmission screening. Confirmation #[id number]. Provided update to [facility] on discharge. Provided update to pt's sister, Kathi. Phone call to Selam from [facility] ([phone]) to provide update on discharge plans. Orders were faxed to facility. Social work will follow up as needed.
--- NOTE | 2022-12-16 13:11 | ONC.NURNOTE ---
sleepy but easily awaken and oriented feeds self and swallows well. morphine and oxygen given with rellief. transfered to [facility] for comfort cares at [address] [facility] and [facility]. family lives near area. report called no answer. left message.
== END 2022-12-16 10:30 | disposition hospice, inpatient (51) | DRG 196 ==
LOC: ED 18:32 → MEDSURG 20:42
PROVIDERS: Admitting Provider Family Medicine; Emergency Provider Family Medicine; PCP Family Medicine; Visit Provider Family Medicine
DX: J84.10 Pulmonary fibrosis, unspecified (principal); J18.9 Pneumonia, unspecified organism; J96.21 Acute and chronic respiratory failure with hypoxia; J96.22 Acute and chronic respiratory failure with hypercapnia; F11.10 Opioid abuse, uncomplicated; Z87.891 Personal history of nicotine dependence; R62.7 Adult failure to thrive; R63.4 Abnormal weight loss; F02.80 Dementia in other diseases classified elsewhere, unspecified severity, without behavioral disturbance, psychotic disturbance, mood disturbance, and anxiety; E78.5 Hyperlipidemia, unspecified; I10 Essential (primary) hypertension; K59.00 Constipation, unspecified; G31.83 Neurocognitive disorder with Lewy bodies; F02.B0 Dementia in other diseases classified elsewhere, moderate, without behavioral disturbance, psychotic disturbance, mood disturbance, and anxiety
CPT/HCPCS: 36415; 71045; 71275; 80053; 81003; 81015; 82803; 83605; 83880; 84484; 85025; 85379; 86140; 87631; 93005; 94761; 97165; 99284; 99285; A9270; Q9967

== ENCOUNTER 2022-12-16 10:18 | Outpatient (CLI) | payer MEDICARE, BC, SELFPAY | END 2022-12-16 10:19 | disposition home or self-care (01) | LOC: AMB 12-20 14:42 | PROVIDERS: PCP Family Medicine; Visit Provider Emergency Medicine | DX: I10 Essential (primary) hypertension (principal); Z99.81 Dependence on supplemental oxygen | CPT/HCPCS: A0425; A0428 ==